=== PATIENT | female | born 1990 | race Caucasian/White ===

== ENCOUNTER → 2016-10-30 | Outpatient (REF) | payer OTHER ==
[~2016-10-30] MED LIST: /AUGM875TA OR; No Historical Meds; PERC5TAB8 OR
== END ==
LOC: M SFHCLERA 14:16
PROVIDERS: ATTEND Nurse Practitioner Family
DX: R30.0 Dysuria (principal); N89.8 Other specified noninflammatory disorders of vagina

== ENCOUNTER 2017-02-17 14:07 | Inpatient (IN) | payer OTHER ==
[~2017-02-17] VITALS: Ht 160 cm; Wt 94.0 kg
[2017-02-17] MEDS ORDERED: LAMO10TA PO (14:40)
[2017-02-17] MEDS ORDERED: LEVO25TA5 PO (14:40)
[2017-02-17] MEDS ORDERED: ZALE10CA PO (14:40)
[2017-02-17 15:33] LABS: METHADONE URINE NEGATIVE (NEGATIVE)
[2017-02-17 15:53] LABS: MEAN CORPUSCULAR HEMOGLOBIN 26.9 pg (27.0-33.0); MEAN CORPUSCULAR HGB CONC 33.2 g/dl (32.0-36.5); MEAN CORPUSCULAR VOLUME 81.2 fl (80.0-96.0); RED CELL DISTRIBUTION WIDTH 12.9 % (11.5-14.5); WHITE BLOOD COUNT 9.8 10^3/uL (4.0-10.0)
[2017-02-17 16:00] LABS: CONTROL LINE HCG INT CTR LINE PRESENT
[2017-02-17 16:16] LABS: ALBUMIN 3.8 GM/DL (3.2-5.2); ALBUMIN/GLOBULIN RATIO 1.06 (1.00-1.93); ALKALINE PHOSPHATASE 66 U/L (45-117); ALT/SGPT 98 U/L (12-78); ANION GAP 6 MEQ/L (8-16); AST/SGOT 74 U/L (15-37); BILIRUBIN,DIRECT < 0.1 MG/DL (0.0-0.2); BILIRUBIN,TOTAL 0.3 MG/DL (0.2-1.0); BLOOD UREA NITROGEN 14 MG/DL (7-18); CALCIUM LEVEL 8.9 MG/DL (8.5-10.1); CARBON DIOXIDE LEVEL 27 MEQ/L (21-32); CHLORIDE LEVEL 107 MEQ/L (98-107); GLOMERULAR FILTRATION RATE > 60.0 (>60); GLUCOSE, FASTING 88 MG/DL (70-105); SODIUM LEVEL 140 MEQ/L (136-145); TOTAL PROTEIN 7.4 GM/DL (6.4-8.2)
[2017-02-17] MEDS ORDERED: HYDR-3363 PO (17:56)
[2017-02-17] MEDS ORDERED: LEVO-86 PO (17:56)
[2017-02-17] MEDS ORDERED: MAALOX 30 ML SUSP *UDC PO PRN (19:30)
[2017-02-17] MEDS ORDERED: MOM 30ML SUSPENSION UDC PO PRN (19:30)
[2017-02-17] MEDS ORDERED: ACETAMINOPHEN TAB 650MG DOSE (2X325MG) PO PRN (19:30)
[2017-02-17 22:30] VITALS: BP 135/76
[2017-02-18 06:22] VITALS: BP 118/57
[2017-02-18] MEDS: LEVOTHYROXINE 75MCG TABLET (0.075MG) PO SCH (06:51)
--- NOTE | 2017-02-18 08:24 | ECGEPIP ---
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
[2017-02-18] MEDS: hydrOXYzine 25 MG TAB PO SCH (09:34)
[2017-02-18] MEDS: lamoTRIgine 100MG TAB PO SCH (09:34)
--- NOTE | 2017-02-18 09:42 | HPEPDOC ---
[facility] Medical History & Physical Date of Admission Feb 17, 2017 History and Physical PCP: Maria Isabel ATTENDING: Dr. Nadeem Jaime HPI: 26yoF admitted to [facility] for unspecified depressive disorder, being medically examined today. No acute medical complaints today. Patient states she takes Lamictal for her mood. She does use Tums intermittently for heartburn symptoms. She states this is effective for her. She states when she gets nervous she notices reflux symptoms. Denies any fevers, chills, weakness, fatigue, [place], CP, SOB, cough, palpitations, abdominal pain, N/V/D or changes in bowel or bladder habits. PMHx: Anxiety Depression Bipolar disorder Obesity. 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 ROS: As noted in HPI, otherwise 11pt ROS of systems reviewed and remarkable only for LMP 01/16/17. Mirena. PE: GEN: 26 yo F, appears stated age. Well-nourished, well developed. No acute distress. Alert and oriented x 3. Pleasant, interactive. HEENT: Normocephalic, atraumatic. Pupils are equal, round, and reactive to light. Extraocular movements are intact. No nystagmus appreciated. Sclera are nonicteric. Conjunctiva without injection. Nose midline. Nasal turbinates without bogginess. EACs both patent BL. TMs both visualized and baker with good cone of light, no bulging or erythema. No facial asymmetry. Moist mucous membranes. Dentition fair. Pharynx pink and moist, no cobblestoning. Neck supple , trachea midline. No lymphadenopathy or thyromegaly appreciated. CHEST: Regular rate and rhythm, +S1, +S2 LUNGS: Clear to auscultation bilaterally. No wheezes, rales, or rhonchi. Breathing appears symmetric and easy. Patient is speaking in full sentences. No accessory muscle use. ABD: Round, soft, non-tender, non-distended. +Bowel sounds throughout. No rebound or guarding. No costovertebral angle tenderness. EXT: Pulses 2+ bilaterally dorsalis pedis and radial. No lower extremity edema appreciated. SKIN: [place], dry, warm. Capillary refill <2sec. No rashes. NEURO: Alert and oriented x 3. Cranial nerves III-XII are intact. No focal deficits appreciated. EK02/17/17 SINUS RHYTHM NO PRIOR FOR COMPARISON. A&P: 26yoF admitted to [facility] for unspecified depressive disorder 1. Psych. Plan per Psychiatry. EKG on file. 2. GERD. Prilosec 20 mg by mouth daily. 3. Hypothyroid. Continue supplement. TSH is noted within normal limits. 4. Follow up with PCP on discharge. 5. Elevated LFTs. Recheck CMP in a.m. Add hepatitis profile. 6. Staff member Di present throughout exam. Vital Signs Vital Signs Date Time Temp Pulse Resp B/P (MAP) Pulse Ox O2 Delivery O2 Flow Rate FiO2 02/18/17 06:22 99.4 71 16 118/57 (77) Room Air 02/17/17 22:30 98 Laboratory Data Labs 24H Laboratory Tests 2 02/17/17 14:57: Urine Amphetamines Screen NEGATIVE, Urine Benzodiazepines Screen NEGATIVE, Urine Opiates Screen NEGATIVE, Urine Methadone Screen NEGATIVE, Urine Barbiturates Screen NEGATIVE, Urine Phencyclidine Screen NEGATIVE, Urine Cocaine Metabolite Screen NEGATIVE, Urine Cannabinoids Screen NEGATIVE 02/17/17 15:36: Anion Gap 6L, Glomerular Filtration Rate > 60.0, Calcium Level 8.9, Aspartate Amino Transf (AST/SGOT) 74H, Alanine Aminotransferase (ALT/SGPT) 98H, Alkaline Phosphatase 66, Total Bilirubin 0.3, Direct Bilirubin < 0.1, Total Protein 7.4, Albumin 3.8, Albumin/Globulin Ratio 1.06, Thyroid Stimulating Hormone (TSH) 2.310, Human Chorionic Gonadotropin, Qual NEGATIVE, Salicylates Level < 1.7L, Acetaminophen Level < 2.0L, Ethyl Alcohol Level 0.005 CBC/BMP Laboratory Tests 02/17/17 15:36 Red Blood Count 5.05, Mean Corpuscular Volume 81.2, Mean Corpuscular Hemoglobin 26.9 L, Mean Corpuscular Hemoglobin Concent 33.2, Red Cell Distribution Width 12.9 Home Medications Scheduled Lamotrigine (LaMICtal) 100 Mg Tab, 100 MG PO DAILY Levothyroxine Sodium (Levo-T) 75 Mcg Tab, 75 MCG PO DAILY Scheduled PRN Hydroxyzine HCl (Hydroxyzine HCl) 25 Mg Tab, 25 MG PO QID PRN for ANXIETY Allergies Coded Allergies: No Known Allergies (Verified , 02/17/17) Brii Coker Feb 18, 2017 09:42
[2017-02-18] MEDS: OMEPRAZOLE 20 MG CAP PO SCH (11:40)
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
[2017-02-18 18:00] VITALS: BP 120/60
[2017-02-18] MEDS: lamoTRIgine 25 MG TAB PO SCH (21:25)
[2017-02-18] MEDS: traZODone 50 MG TAB PO PRN (21:25)
[2017-02-18] MEDS: PRAZOSIN 1 MG CAP PO SCH (21:26)
[2017-02-19] MEDS: LEVOTHYROXINE 75MCG TABLET (0.075MG) PO SCH (06:13)
[2017-02-19 06:57] VITALS: BP 120/67
[2017-02-19 07:15] LABS: ALBUMIN 3.5 GM/DL (3.2-5.2); ALBUMIN/GLOBULIN RATIO 1.13 (1.00-1.93); ALKALINE PHOSPHATASE 58 U/L (45-117); ALT/SGPT 87 U/L (12-78); ANION GAP 8 MEQ/L (8-16); AST/SGOT 55 U/L (15-37); BILIRUBIN,TOTAL 0.2 MG/DL (0.2-1.0); BLOOD UREA NITROGEN 14 MG/DL (7-18); CALCIUM LEVEL 8.4 MG/DL (8.5-10.1); CARBON DIOXIDE LEVEL 27 MEQ/L (21-32); CHLORIDE LEVEL 105 MEQ/L (98-107); CREATININE FOR GFR 0.84 MG/DL (0.55-1.02); GLOMERULAR FILTRATION RATE > 60.0 (>60); GLUCOSE, FASTING 117 MG/DL (70-105); POTASSIUM SERUM 4.1 MEQ/L (3.5-5.1); SODIUM LEVEL 140 MEQ/L (136-145); TOTAL PROTEIN 6.6 GM/DL (6.4-8.2)
[2017-02-19] MEDS: hydrOXYzine 25 MG TAB PO SCH (08:12)
[2017-02-19] MEDS: OMEPRAZOLE 20 MG CAP PO SCH (08:12)
[2017-02-19] MEDS: lamoTRIgine 100MG TAB PO SCH (08:12)
--- NOTE | 2017-02-19 15:24 | MHIPNPDOC ---
[facility] Progress Note Progress Note DATE OF SERVICE: 02/19/17 HISTORY: . Patient is a 26 years old female that was admitted after having an overdose on sleeping pills. Patient reported feeling better. No ideas of self-harm. No side effects of medication. Very pleasant, cooperative with full range affect VITAL SIGNS: See below. NEW TEST RESULTS: . CURRENT MEDICATIONS: See below. MENTAL STATUS EXAMINATION: General appearance: Patient is a 26-year old female, who has long brown hair, pleasant smile, laughs easily, shares openly, dressed in hospital attire with good eye contact. Speech: spontaneous, coherent Thought processes: goal directed, no delusions, MUSA or IOR Thought content: appropriate Abstract reasoning and computation:good. Description of associations: good Description of abnormal or psychotic thoughts: no hallucinations, not presently planning to harm herself. Judgment: limited Insight: limited Orientation: oriented in all realms Recent and remote memory: intact Attention span and concentration: fair. Fund of knowledge: full Mood: "ok" Affect: full range DIAGNOSES: 1. . Bipolar disorder 2. . 3. . ASSESSMENT: 26 years old female that was admitted after having an overdose of sleeping pills and worsening symptoms of depression, currently feeling better, no longer endorsing any depressive symptoms. No suicidal ideas. No side effects of medications MANAGEMENT PLAN: . Continue current medications. Discharge planning as per primary team TIME SPENT: 25 minutes. Vital Signs Vital Signs Date Time Temp Pulse Resp B/P (MAP) Pulse Ox O2 Delivery O2 Flow Rate FiO2 02/19/17 06:57 97.4 81 18 120/67 (84) 02/18/17 06:22 Room Air 02/17/17 22:30 98 Laboratory Data 24H Labs Laboratory Tests 2 02/19/17 06:08: Anion Gap 8, Glomerular Filtration Rate > 60.0, Blood Urea Nitrogen 14, Creatinine 0.84, Sodium Level 140, Potassium Level 4.1, Chloride Level 105, Carbon Dioxide Level 27, Calcium Level 8.4L, Aspartate Amino Transf (AST/SGOT) 55H, Alanine Aminotransferase (ALT/SGPT) 87H, Alkaline Phosphatase 58, Total Bilirubin 0.2, Total Protein 6.6, Albumin 3.5, Albumin/Globulin Ratio 1.13 CBC/BMP Laboratory Tests 02/19/17 06:08 Calcium Level 8.4 L, Aspartate Amino Transf (AST/SGOT) 55 H, Alanine Aminotransferase (ALT/SGPT) 87 H, Alkaline Phosphatase 58, Total Bilirubin 0.2, Total Protein 6.6, Albumin 3.5 Current Medications Current Medications Acetaminophen (Tylenol Tab) 650 mg Q6HP PRN PO HEADACHE or DISCOMFORT; Start 02/17/17 at 19:30; Stop 03/19/17 at 19:29 Al Hydrox/Mg Hydrox/Simethicone (Mylanta) 30 ml Q4HP PRN PO HEARTBURN/ INDIGESTION; Start 02/17/17 at 19:30; Stop 03/19/17 at 19:29 Home Med (Med Rec Complete!) ASDIRECTED XX ; Start 02/17/17 at 18:00; Stop 02/17/17 at 18:01; Status DC Hydroxyzine HCl (Atarax) 25 mg DAILY PO Last administered on 02/19/17 08:12; Start 02/18/17 at 09:00; Stop 03/20/17 at 08:59 Hydroxyzine HCl (Atarax) 25 mg Q6HP PRN PO ANXIETY; Start 02/18/17 at 15:15; Stop 03/20/17 at 15:14 Lamotrigine (LaMICtal) 25 mg QHS PO Last administered on 02/18/17 21:25; Start 02/18/17 at 21:00; Stop 03/20/17 at 20:59 Lamotrigine (LaMICtal) 100 mg DAILY PO Last administered on 02/19/17 08:12; Start 02/18/17 at 09:00; Stop 03/20/17 at 08:59 Levothyroxine Sodium (Synthroid) 75 mcg DAILY@06 PO Last administered on 06:13; Start 02/18/17 at 06:00; Stop 03/20/17 at 05:59 Magnesium Hydroxide (Milk Of Magnesia) 30 ml DAILYPRN PRN PO CONSTIPATION; Start 02/17/17 at 19:30; Stop 03/19/17 at 19:29 Omeprazole (PriLOSEC) 20 mg DAILY PO Last administered on 02/19/17 08:12; Start 02/18/17 at 09:00; Stop 03/20/17 at 08:59 Prazosin HCl (Minipress) 1 mg QHS PO Last administered on 02/18/17 21:26; Start 02/18/17 at 21:00; Stop 03/20/17 at 20:59 Trazodone HCl (Desyrel) 50 mg QHSP PRN PO INSOMNIA Last administered on 21:25; Start 02/17/17 at 19:30; Stop 03/19/17 at 19:29 Allergies Coded Allergies: No Known Allergies (Verified , 02/17/17) BHARGAVI MONET MD Feb 19, 2017 15:24
[2017-02-19] MEDS: hydrOXYzine 25 MG TAB PO PRN (16:09)
[2017-02-19] MEDS: PRAZOSIN 1 MG CAP PO SCH (21:24)
[2017-02-19] MEDS: lamoTRIgine 25 MG TAB PO SCH (21:24)
[2017-02-20] MEDS: traZODone 50 MG TAB PO PRN ×2 (00:11→22:53)
[2017-02-20] MEDS: LEVOTHYROXINE 75MCG TABLET (0.075MG) PO SCH (05:36)
[2017-02-20 06:36] VITALS: BP 133/60
[2017-02-20] MEDS: lamoTRIgine 100MG TAB PO SCH (08:34)
[2017-02-20] MEDS: OMEPRAZOLE 20 MG CAP PO SCH (08:34)
[2017-02-20] MEDS: hydrOXYzine 25 MG TAB PO SCH (08:34)
--- NOTE | 2017-02-20 15:57 | MHIPNPDOC ---
[facility] Progress Note Progress Note DATE OF SERVICE: 02/20/17 HISTORY: . Patient is a 26 years old female that was admitted after having an overdose on sleeping pills. Patient reported feeling better. No ideas of self-harm. No side effects of medication. Very pleasant, cooperative. VITAL SIGNS: See below. NEW TEST RESULTS: . CURRENT MEDICATIONS: See below. MENTAL STATUS EXAMINATION: General appearance: Patient is a 26-year old female, who has long brown hair, pleasant smile, laughs easily, shares openly, dressed in hospital attire with good eye contact. Speech: spontaneous, coherent Thought processes: goal directed, no delusions, MUSA or IOR Thought content: appropriate Abstract reasoning and computation:good. Description of associations: good Description of abnormal or psychotic thoughts: no hallucinations, not presently planning to harm herself. Judgment: limited Insight: limited Orientation: oriented in all realms Recent and remote memory: intact Attention span and concentration: fair. Fund of knowledge: full Mood: "ok" Affect: full range DIAGNOSES: 1. . Bipolar disorder 2. . 3. . ASSESSMENT: 26 years old female that was admitted after having an overdose of sleeping pills and worsening symptoms of depression, currently feeling better, no longer endorsing any depressive symptoms. No suicidal ideas. No side effects of medications MANAGEMENT PLAN: . Continue current medications. Discharge planning as per primary team TIME SPENT: 25 minutes. Vital Signs Vital Signs Date Time Temp Pulse Resp B/P (MAP) Pulse Ox O2 Delivery O2 Flow Rate FiO2 02/20/17 06:36 98.4 74 18 133/60 (84) 02/18/17 06:22 Room Air 02/17/17 22:30 98 Current Medications Current Medications Acetaminophen (Tylenol Tab) 650 mg Q6HP PRN PO HEADACHE or DISCOMFORT; Start 02/17/17 at 19:30; Stop 03/19/17 at 19:29 Al Hydrox/Mg Hydrox/Simethicone (Mylanta) 30 ml Q4HP PRN PO HEARTBURN/ INDIGESTION; Start 02/17/17 at 19:30; Stop 03/19/17 at 19:29 Home Med (Med Rec Complete!) ASDIRECTED XX ; Start 02/17/17 at 18:00; Stop 02/17/17 at 18:01; Status DC Hydroxyzine HCl (Atarax) 25 mg DAILY PO Last administered on 02/20/17 08:34; Start 02/18/17 at 09:00; Stop 03/20/17 at 08:59 Hydroxyzine HCl (Atarax) 25 mg Q6HP PRN PO ANXIETY Last administered on 16:09; Start 02/18/17 at 15:15; Stop 03/20/17 at 15:14 Lamotrigine (LaMICtal) 25 mg QHS PO Last administered on 02/19/17 21:24; Start 02/18/17 at 21:00; Stop 03/20/17 at 20:59 Lamotrigine (LaMICtal) 100 mg DAILY PO Last administered on 02/20/17 08:34; Start 02/18/17 at 09:00; Stop 03/20/17 at 08:59 Levothyroxine Sodium (Synthroid) 75 mcg DAILY@06 PO Last administered on 05:36; Start 02/18/17 at 06:00; Stop 03/20/17 at 05:59 Magnesium Hydroxide (Milk Of Magnesia) 30 ml DAILYPRN PRN PO CONSTIPATION; Start 02/17/17 at 19:30; Stop 03/19/17 at 19:29 Omeprazole (PriLOSEC) 20 mg DAILY PO Last administered on 02/20/17 08:34; Start 02/18/17 at 09:00; Stop 03/20/17 at 08:59 Prazosin HCl (Minipress) 1 mg QHS PO Last administered on 02/19/17 21:24; Start 02/18/17 at 21:00; Stop 03/20/17 at 20:59 Trazodone HCl (Desyrel) 50 mg QHSP PRN PO INSOMNIA Last administered on 00:11; Start 02/17/17 at 19:30; Stop 03/19/17 at 19:29 Allergies Coded Allergies: No Known Allergies (Verified , 02/17/17) BHARGAVI MONET MD Feb 20, 2017 15:56
[2017-02-20] MEDS: hydrOXYzine 25 MG TAB PO PRN (16:52)
[2017-02-20 18:00] VITALS: BP 110/51
[2017-02-20] MEDS: lamoTRIgine 25 MG TAB PO SCH (22:54)
[2017-02-20] MEDS: PRAZOSIN 1 MG CAP PO SCH (22:55)
[2017-02-21] MEDS: LEVOTHYROXINE 75MCG TABLET (0.075MG) PO SCH (06:04)
[2017-02-21 07:04] VITALS: BP 121/62
[2017-02-21] MEDS: lamoTRIgine 100MG TAB PO SCH (08:59)
[2017-02-21] MEDS: hydrOXYzine 25 MG TAB PO SCH ×2 (08:59→23:02)
[2017-02-21] MEDS: OMEPRAZOLE 20 MG CAP PO SCH (08:59)
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
[2017-02-21 18:00] VITALS: BP 109/55
[2017-02-21] MEDS ORDERED: lamoTRIgine 25 MG TAB PO SCH (21:00)
[2017-02-21] MEDS: traZODone 50 MG TAB PO PRN (23:01)
[2017-02-21 23:04] VITALS: BP 138/68
[2017-02-21] MEDS: PRAZOSIN 1 MG CAP PO SCH (23:04)
[2017-02-22] MEDS: LEVOTHYROXINE 75MCG TABLET (0.075MG) PO SCH (06:05)
[2017-02-22 06:45] VITALS: BP 111/54
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
[2017-02-22] MEDS: OMEPRAZOLE 20 MG CAP PO SCH (08:48)
[2017-02-22] MEDS: lamoTRIgine 100MG TAB PO SCH (08:48)
[2017-02-22 09:44] LABS: ALBUMIN 3.6 GM/DL (3.2-5.2); ALBUMIN/GLOBULIN RATIO 1.09 (1.00-1.93); ALKALINE PHOSPHATASE 60 U/L (45-117); ALT/SGPT 81 U/L (12-78); ANION GAP 8 MEQ/L (8-16); AST/SGOT 53 U/L (15-37); BILIRUBIN,TOTAL 0.3 MG/DL (0.2-1.0); BLOOD UREA NITROGEN 14 MG/DL (7-18); CALCIUM LEVEL 9.3 MG/DL (8.5-10.1); CARBON DIOXIDE LEVEL 26 MEQ/L (21-32); CHLORIDE LEVEL 103 MEQ/L (98-107); CREATININE FOR GFR 0.94 MG/DL (0.55-1.02); GLOMERULAR FILTRATION RATE > 60.0 (>60); GLUCOSE, FASTING 210 MG/DL (70-105); POTASSIUM SERUM 4.1 MEQ/L (3.5-5.1); SODIUM LEVEL 137 MEQ/L (136-145); TOTAL PROTEIN 6.9 GM/DL (6.4-8.2)
[2017-02-22] MEDS ORDERED: TRAZO50TA PO (11:09)
[2017-02-22] MEDS ORDERED: MINI1CAP PO (11:09)
[2017-02-22] MEDS ORDERED: LAMI25TA PO (11:09)
[2017-02-22] MEDS: hydrOXYzine 25 MG TAB PO PRN (11:59)
== END 2017-02-22 12:30 | disposition home or self-care (01) | DRG 885 ==
LOC: M ED 14:07 → M ED INP 19:30 → M PSY 22:27
PROVIDERS: ADMIT Psychiatry & Neurology Psychiatry; ATTEND Psychiatry & Neurology Psychiatry
DX: F31.4 Bipolar disorder, current episode depressed, severe, without psychotic features (principal); F60.3 Borderline personality disorder; Z79.899 Other long term (current) drug therapy; E66.9 Obesity, unspecified; E03.9 Hypothyroidism, unspecified; Z68.36 Body mass index [BMI] 36.0-36.9, adult; K21.9 Gastro-esophageal reflux disease without esophagitis

== ENCOUNTER → 2018-01-02 | Outpatient (CLI) | payer OTHER ==
[2018-01-02 11:28] LABS: TOTAL 25(OH) VITAMIN D 48.3 NG/ML (30.0-100.0)
[2018-01-02 11:29] LABS: ALBUMIN 4.1 GM/DL (3.2-5.2); ALBUMIN/GLOBULIN RATIO 1.24 (1.00-1.93); ALKALINE PHOSPHATASE 77 U/L (45-117); ALT/SGPT 31 U/L (12-78); ANION GAP 8 MEQ/L (8-16); AST/SGOT 19 U/L (7-37); BILIRUBIN,TOTAL 0.5 MG/DL (0.2-1.0); BLOOD UREA NITROGEN 15 MG/DL (7-18); CALCIUM LEVEL 9.3 MG/DL (8.5-10.1); CARBON DIOXIDE LEVEL 29 MEQ/L (21-32); CHLORIDE LEVEL 106 MEQ/L (98-107); CHOLESTEROL LEVEL 172 MG/DL (<200); CHOLESTEROL RISK RATIO 3.909 (<5); FERRITIN 61 NG/ML (8-252); FREE T4 0.89 NG/DL (0.76-1.46); GLOMERULAR FILTRATION RATE > 60.0 (>60); GLUCOSE, FASTING 83 MG/DL (70-100); HDL CHOLESTEROL 44 MG/DL (>40); IRON (FE) 82 UG/DL (50-170); LDL CHOLESTEROL 107.8 MG/DL (<100); NON-HDL-C 128 MG/DL; PERCENT SATURATION 29.8 % (13.2-45.0); POTASSIUM SERUM 4.2 MEQ/L (3.5-5.1); SODIUM LEVEL 143 MEQ/L (136-145); TOTAL IRON BINDING CAPACITY 275 UG/DL (250-450); TOTAL PROTEIN 7.4 GM/DL (6.4-8.2); TRIGLYCERIDES LEVEL 101 MG/DL (<150); VITAMIN B12 LEVEL 328 PG/ML
[2018-01-02 11:31] LABS: FOLATE > 24.0 NG/ML
[2018-01-02 11:56] LABS: ESTIMATED AVERAGE GLUCOSE 108 MG/DL (60-110); HEMOGLOBIN A1c 5.4 %
[2018-01-02 13:02] LABS: BASO % 0.4 % (0.0-1.0); EOS # 0.2 10^3/uL (0.0-0.50); EOS % 2.7 % (0.0-3.0); HEMATOCRIT 40.7 % (36.0-47.0); HEMOGLOBIN 13.6 g/dl (12.0-15.5); IMMATURE GRANULOCYTE % 0.2 % (0-3.0); LYMPH # 2.2 10^3/uL (1.5-6.5); LYMPH % 38.8 % (24.0-44.0); MEAN CORPUSCULAR HEMOGLOBIN 27.6 pg (27.0-33.0); MEAN CORPUSCULAR HGB CONC 33.4 g/dl (32.0-36.5); MEAN CORPUSCULAR VOLUME 82.6 fl (80.0-96.0); MONO # 0.3 10^3/uL (0.0-0.8); MONO % 5.7 % (0.0-5.0); NEUTROPHILS # 2.9 10^3/uL (1.8-7.7); NEUTROPHILS % 52.2 % (36.0-66.0); PLATELET COUNT, AUTOMATED 280 10^3/uL (150-450); RED BLOOD COUNT 4.93 10^6/uL (4.00-5.40); WHITE BLOOD COUNT 5.6 10^3/uL (4.0-10.0)
== END ==
LOC: M LAB 10:32
DX: Z98.84 Bariatric surgery status (principal)
CPT/HCPCS: 82746

== ENCOUNTER → 2018-01-24 | Outpatient (REF) | payer BC, OTHER ==
[2018-01-24 19:08] LABS: MAU/CREAT RATIO 4.7 MCG/MG (0.0-30.0)
== END ==
LOC: M SFHCCAPE 10:37
DX: E11.8 Type 2 diabetes mellitus with unspecified complications (principal)
CPT/HCPCS: 82043

== ENCOUNTER 2018-04-04 10:37 | Emergency (ER) | payer MEDICAID, SELFPAY, OTHER | END 2018-04-04 11:34 | disposition home or self-care (01) | LOC: M ED 10:37 | DX: S70.02XA Contusion of left hip, initial encounter (principal); W00.0XXA Fall on same level due to ice and snow, initial encounter; Y92.410 Unspecified street and highway as the place of occurrence of the external cause; E06.3 Autoimmune thyroiditis; Z98.84 Bariatric surgery status | CPT/HCPCS: 73502 ==

== ENCOUNTER 2019-03-04 23:18 | Emergency (ER) | payer MEDICAID, OTHER, SELFPAY ==
[~2019-03-04] VITALS: Ht 160 cm; Wt 115.0 kg
[~2019-03-04 23:18] MED LIST changes: +HYDR-3363 PO; +HYDR-3715 PO; +IBUP-1022 PO; +LAMI25TA PO; +LAMO100T80 PO; +LEVO-86 PO; +LEVO25TA5 PO; +MINI1CAP PO; +TRAZ1TAB10 PO; +ZALE10CA PO
[2019-03-05] MEDS ORDERED: TETRACAINE 0.5% OPHTH SOLN 4ML OS ONE (00:30)
[2019-03-05] MEDS ORDERED: FLUORESCEIN OPHTH 1 MG STRIP OS ONE (00:30)
[2019-03-05] MEDS ORDERED: NORCO, ANEXSIA 5/325MG TABLET (HYDROcodone/ACETAMINOPHEN) PO ONE (00:45)
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
[2019-03-05 01:37] VITALS: BP 139/70
== END 2019-03-05 01:48 | disposition home or self-care (01) ==
LOC: M ED 23:18
DX: S05.11XA Contusion of eyeball and orbital tissues, right eye, initial encounter (principal); S00.81XA Abrasion of other part of head, initial encounter; K08.89 Other specified disorders of teeth and supporting structures; Y04.8XXA Assault by other bodily force, initial encounter; Y92.9 Unspecified place or not applicable; Y93.9 Activity, unspecified; Y99.9 Unspecified external cause status; E03.9 Hypothyroidism, unspecified

== ENCOUNTER → 2019-11-22 | Outpatient (REF) | payer OTHER ==
[2019-11-22 14:33] LABS: BASO % 0.6 % (0.0-1.0); EOS # 0.1 10^3/uL (0.0-0.5); EOS % 2.1 % (0.0-3.0); HEMATOCRIT 31.8 % (36.0-47.0); HEMOGLOBIN 9.7 g/dl (12.0-15.5); LYMPH # 1.7 10^3/uL (1.5-5.0); LYMPH % 35.7 % (24.0-44.0); MEAN CORPUSCULAR HEMOGLOBIN 24.1 pg (27.0-33.0); MEAN CORPUSCULAR HGB CONC 30.5 g/dl (32.0-36.5); MEAN CORPUSCULAR VOLUME 79.1 fl (80.0-96.0); MONO # 0.6 10^3/uL (0.0-0.8); MONO % 12.4 % (0.0-5.0); NEUTROPHILS # 2.4 10^3/uL (1.5-8.5); NEUTROPHILS % 48.8 % (36.0-66.0); PLATELET COUNT, AUTOMATED 333 10^3/uL (150-450); RED BLOOD COUNT 4.02 10^6/uL (4.00-5.40); WHITE BLOOD COUNT 4.8 10^3/uL (4.0-10.0)
[2019-11-22 15:43] LABS: ALBUMIN 3.5 GM/DL (3.2-5.2); ALT/SGPT 198 U/L (12-78); BILIRUBIN,TOTAL 0.2 MG/DL (0.2-1.0); BLOOD UREA NITROGEN 12 MG/DL (7-18); CALCIUM LEVEL 9.4 MG/DL (8.5-10.1); CARBON DIOXIDE LEVEL 30 MEQ/L (21-32); CHLORIDE LEVEL 107 MEQ/L (98-107); CREATININE FOR GFR 0.74 MG/DL (0.55-1.30); GLOMERULAR FILTRATION RATE > 60.0 (>60); GLUCOSE, FASTING 63 MG/DL (70-100); SODIUM LEVEL 142 MEQ/L (136-145)
[2019-11-23 09:43] LABS: HEPATITIS B SURFACE ANTIGEN NEGATIVE (NEGATIVE)
[2019-11-23 09:46] LABS: HEPATITIS B SURFACE ANTIBODY NEGATIVE (POSITIVE)
[2019-11-23 09:47] LABS: HIV 1&2 SCREEN CENTAUR NEGATIVE (NEGATIVE)
[2019-11-29 00:08] LABS: HEPATITIS A IgG TOTAL Negative (Negative); HEPATITIS B CORE ANTIBODY IGG Negative (Negative); HEPATITIS C QUANTITATION 156280 IU/mL (.); HEPATITIS C VIRUS GENOTYPE 1b (.)
== END ==
LOC: M SFHCPLAZ 12:31
PROVIDERS: ATTEND Internal Medicine Infectious Disease
DX: B19.20 Unspecified viral hepatitis C without hepatic coma (principal); L02.93 Carbuncle, unspecified

== ENCOUNTER → 2019-11-23 | Outpatient (CLI) | payer OTHER ==
--- NOTE | 2019-11-23 11:16 | ECGEPIP ---
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
[2019-11-23 11:19] LABS: HEMATOCRIT 31.5 % (36.0-47.0); HEMOGLOBIN 9.5 g/dl (12.0-15.5); MEAN CORPUSCULAR HEMOGLOBIN 23.9 pg (27.0-33.0); MEAN CORPUSCULAR HGB CONC 30.2 g/dl (32.0-36.5); MEAN CORPUSCULAR VOLUME 79.3 fl (80.0-96.0); PLATELET COUNT, AUTOMATED 297 10^3/uL (150-450); RED BLOOD COUNT 3.97 10^6/uL (4.00-5.40); WHITE BLOOD COUNT 4.2 10^3/uL (4.0-10.0)
[2019-11-23 11:45] LABS: HCG, SERUM QUALITATIVE NEGATIVE (NEGATIVE)
[2019-11-23 11:59] LABS: ALBUMIN 3.4 GM/DL (3.2-5.2); ALT/SGPT 177 U/L (12-78); BILIRUBIN,TOTAL 0.5 MG/DL (0.2-1.0); BLOOD UREA NITROGEN 10 MG/DL (7-18); CALCIUM LEVEL 8.9 MG/DL (8.5-10.1); CARBON DIOXIDE LEVEL 29 MEQ/L (21-32); CHLORIDE LEVEL 107 MEQ/L (98-107); CREATININE FOR GFR 0.74 MG/DL (0.55-1.30); GLOMERULAR FILTRATION RATE > 60.0 (>60); GLUCOSE, FASTING 71 MG/DL (70-100); POTASSIUM SERUM 4.1 MEQ/L (3.5-5.1); SODIUM LEVEL 141 MEQ/L (136-145); TOTAL PROTEIN 6.8 GM/DL (6.4-8.2)
[2019-11-23 12:05] LABS: HEPATITIS B SURFACE ANTIGEN NEGATIVE (NEGATIVE)
[2019-11-23 12:33] LABS: HIV 1&2 SCREEN CENTAUR NEGATIVE (NEGATIVE)
[2019-11-23 13:02] LABS: CHLAMYDIA DNA AMPLIFICATION NEGATIVE (NEGATIVE); GC DNA AMPLIFICATION NEGATIVE (NEGATIVE)
[2019-11-23 15:23] LABS: HEPATITIS C VIRUS ABY INDEX > 11.0 INDEX (<0.8)
== END ==
LOC: EEVIPCON 10:32 → M LAB 10:32
PROVIDERS: ATTEND Family Medicine
DX: F11.20 Opioid dependence, uncomplicated (principal)

== ENCOUNTER 2020-07-07 12:18 | Emergency (ER) | payer OTHER ==
[~2020-07-07] VITALS: Ht 160 cm; Wt 54.5 kg
[2020-07-07] MEDS ORDERED: ACETAMINOPHEN 325 MG TAB PO ONE (12:45)
[2020-07-07] MEDS ORDERED: NALOXONE 2MG/2ML SYRINGE (J2310 PER 1MG) IV ONE (12:45)
--- OUTSIDE RECORDS SUMMARY | 2020-07-07 13:03 | CCD ---
Author Author [facility] Organization [facility] Address Unknown Phone Unavailable Support Name Relationship Address Phone DENA JACOBS Next Of Kin [address] [place] [address] Unavailable UE Next Of Kin Unknown Unavailable DENA MALHOTRA Next Of Kin [address] [place] [address] DPAO Next Of Kin [address] [place] [address] CONVERGY'S Next Of Kin [address] [place] [address] CONVERGYS Next Of Kin [address] [place] [address] RODERICK ZAPATA Next Of Kin [address] [facility] [address], [place] [address] GLO ZAPATA Next Of Kin [address] [place] [address] SETH ELLIOTT Next Of Kin [address] [facility] [address] JRC Next Of Kin [address] [place] [address] JRC* [place] [address] ARABELLA LAWRENCE Next Of Kin [address] [address] [place] [address] SMC* Next Of Kin [address] [place] [address] ARABELLA SOSA Next Of Kin [address] [facility] [address] DENA PAVON Next Of Kin [address] [place] [address] NONE HIEU MCGARRY Next Of Kin Unknown KEN PAVON Next Of Kin [address] [place] [address] JOSEPH ALLAN Next Of [place] [address] [place] [address] NONE GIO ALLAN Next Of Kin [address] [place] [address] Dena malhotra ECON [address] [place] [address] [phone] RODERICK ZAPATA ECON [address] [place] [address] Unavailable Care Team Providers Care Care Program Resident Name Role Phone NUZHAT GRAHAM MD Unavailable Unavailable ASARNUZHAT MD Unavailable Unavailable ASARNUZHAT MD Unavailable Unavailable ASARNUZHAT MD Unavailable Unavailable ASARNUZHAT MD Unavailable Unavailable ASARNUZHAT MD Unavailable Unavailable ASARNUZHAT MD Unavailable Unavailable Cougler, S Tavon OPTOMETRIC ASSISTANT Unavailable Unavailable Cougler, S Tavon OPTOMETRIC ASSISTANT Unavailable Unavailable Cougler, S Tavon OPTOMETRIC ASSISTANT Unavailable Unavailable Cougler, S Tavon OPTOMETRIC ASSISTANT Unavailable Unavailable Cougler, S Tavon OPTOMETRIC ASSISTANT Unavailable Unavailable Cougler, S Tavon OPTOMETRIC ASSISTANT Unavailable Unavailable Cougler, S Tavon OPTOMETRIC ASSISTANT Unavailable Unavailable Cougler, S Tavon OPTOMETRIC ASSISTANT Unavailable Unavailable Cougler, S Tavon OPTOMETRIC ASSISTANT Unavailable Unavailable Cougler, S Tavon OPTOMETRIC ASSISTANT Unavailable Unavailable Cougler, S Tavon OPTOMETRIC ASSISTANT Unavailable Unavailable Cougler, S Tavon OPTOMETRIC ASSISTANT Unavailable Unavailable Cougler, S Tavon OPTOMETRIC ASSISTANT Unavailable Unavailable Cougler, S Tavon OPTOMETRIC ASSISTANT Unavailable Unavailable Cougler, S Tavon OPTOMETRIC ASSISTANT Unavailable Unavailable Cougler, S Tavon OPTOMETRIC ASSISTANT Unavailable Unavailable Cougler, S Tavon OPTOMETRIC ASSISTANT Unavailable Unavailable Cougler, S Tavon OPTOMETRIC ASSISTANT Unavailable Unavailable Cougler, S Tavon OPTOMETRIC ASSISTANT Unavailable Unavailable Cougler, S Tavon OPTOMETRIC ASSISTANT Unavailable Unavailable Cougler, S Tavon OPTOMETRIC ASSISTANT Unavailable Unavailable Cougler, S Tavon OPTOMETRIC ASSISTANT Unavailable Unavailable Cougler, S Tavon OPTOMETRIC ASSISTANT Unavailable Unavailable Cougler, S Tavon OPTOMETRIC ASSISTANT Unavailable Unavailable Cougler, S Tavon OPTOMETRIC ASSISTANT Unavailable Unavailable Cougler, S Tavon OPTOMETRIC ASSISTANT Unavailable Unavailable Cougler, S Tavon OPTOMETRIC ASSISTANT Unavailable Unavailable Cougler, S Tavon OPTOMETRIC ASSISTANT Unavailable Unavailable Cougler, S Tavon OPTOMETRIC ASSISTANT Unavailable Unavailable Cougler, S Tavon OPTOMETRIC ASSISTANT Unavailable Unavailable Cougler, S Tavon OPTOMETRIC ASSISTANT Unavailable Unavailable Cougler, S Tavon OPTOMETRIC ASSISTANT Unavailable Unavailable Cougler, S Tavon OPTOMETRIC ASSISTANT Unavailable Unavailable Cougler, S Tavon OPTOMETRIC ASSISTANT Unavailable Unavailable Cougler, S Tavon OPTOMETRIC ASSISTANT Unavailable Unavailable Cougler, S Tavon OPTOMETRIC ASSISTANT Unavailable Unavailable Cougler, S Tavon OPTOMETRIC ASSISTANT Unavailable Unavailable Cougler, S Tavon OPTOMETRIC ASSISTANT Unavailable Unavailable Cougler, S Tavon OPTOMETRIC ASSISTANT Unavailable Unavailable Cougler, S Tavon OPTOMETRIC ASSISTANT Unavailable Unavailable MARAVEGIAS, N ISMENE MD Unavailable Unavailable MARAVEGIAS, N ISMENE MD Unavailable Unavailable MARAVEGIAS, N ISMENE MD Unavailable Unavailable MARAVEGIAS, N ISMENE MD Unavailable Unavailable MARAVEGIAS, N ISMENE MD Unavailable Unavailable MARAVEGIAS, N ISMENE MD Unavailable Unavailable MARAVEGIAS, N ISMENE MD Unavailable Unavailable MARAVEGIAS, N ISMENE MD Unavailable Unavailable MARAVEGIAS, N ISMENE MD Unavailable Unavailable MARAVEGIAS, N ISMENE MD Unavailable Unavailable MARAVEGIAS, N ISMENE MD Unavailable Unavailable MARAVEGIAS, N ISMENE MD Unavailable Unavailable MARAVEGIAS, N ISMENE MD Unavailable Unavailable MARAVEGIAS, N ISMENE MD Unavailable Unavailable AsarVenessa MD Unavailable Unavailable JANE, A JOSEPH PA Unavailable Unavailable JANE, A JOSEPH PA Unavailable Unavailable JANE, A JOSEPH PA Unavailable Unavailable JANE, A JOSEPH PA Unavailable Unavailable JANE, A JOSEPH PA Unavailable Unavailable JANE, A JOSEPH PA Unavailable Unavailable JANE, A JOSEPH PA Unavailable Unavailable JANE, A JOSEPH PA Unavailable Unavailable JANE, A JOSEPH PA Unavailable Unavailable JANE, A JOSEPH PA Unavailable Unavailable JANE, A JSOEPH PA Unavailable Unavailable JANE, A JOSEPH PA Unavailable Unavailable JANE, A JOSEPH PA Unavailable Unavailable Vitaliy, Rosa Unavailable Re-disclosure Warning The records that you are about to access may contain information from federally-assisted alcohol or drug abuse programs. If such information is present, then the following federally mandated warning applies: This information has been disclosed to you from records protected by federal confidentiality rules (42 CFR part 2). The federal rules prohibit you from making any further disclosure of this information unless further disclosure is expressly permitted by the written consent of the person to whom it pertains or as otherwise permitted by 42 CFR part 2. A general authorization for the release of medical or other information is NOT sufficient for this purpose. The Federal rules restrict any use of the information to criminally investigate or prosecute any alcohol or drug abuse patient.The records that you are about to access may contain highly sensitive health information, the redisclosure of which is protected by Article 27-F of the [facility] Public Health law. If you continue you may have access to information: Regarding HIV / AIDS; Provided by facilities licensed or operated by the [facility] Office of Mental Health; or Provided by the [facility] Office for People With Developmental Disabilities. If such information is present, then the following [facility] mandated warning applies: This information has been disclosed to you from confidential records which are protected by state law. State law prohibits you from making any further disclosure of this information without the specific written consent of the person to whom it pertains, or as otherwise permitted by law. Any unauthorized further disclosure in violation of state law may result in a fine or prison sentence or both. A general authorization for the release of medical or other information is NOT sufficient authorization for further disc losure. Allergies and Adverse Reactions Type Description Substance Reaction Status Data Source(s ) Drug allergy Drug allergy No Known Allergies [facility] Drug allergy Drug allergy No Known Allergies [facility] Family History Family Member Name Family Member Gender Family Member Status Date o f Status Description Data Source(s) Unknown Unknown Problem [facility] ([facility]) Encounters Encounter Providers Location Date Indications Data Source(s ) Inpatient Attender: Nuzhat Valencia nder: NUZHAT GRAHAM MDAdmitter: NUZHAT GRAHAM MD [facility] 02/05/2020 05:01:00 PM EDT - 02/08/2020 03:05:00 PM EDT PSYCHOACTIVE SUBSTANCE DEPENDENCE [facility] PSYCHOACTIVE SUBSTANCE DEPENDENCE Patient discharged. Unknown [address] [facility] [address] 11/30/2019 12:00:00 AM EDT eCW1 ([facility]) Emergency Attender: CITLALLI BHAGAT MDAttender: JOSEPH CAREY ED-ED 11/28/2019 07:49:00 AM EDT - 11/28/2019 10:00:00 AM EDT ARM PAIN [facility] ARM PAIN Patient discharged. Unknown [address] [facility] [address] 11/27/2019 12:00:00 AM EDT eCW1 ([facility]) Outpatient [address] [facility] [address] 11/22/2019 12:00:00 AM EDT eCW1 ([facility]) Emergency Attender: Tavon Marroquin NP ED-ED 11/05 01:20:00 PM EDT - 11/06/2019 01:48:00 PM EDT LT EYE SWELLING [facility] LT EYE SWELLING Patient discharged. Psychiatric Diagnostic Evaluation (Non-Medical) [facility]25[facility] 12:30:00 PM EDT - 07/25/2019 12:30:00 PM EDT [facility] ([facility]) Attender: Rosa Burks 07/25/2019 12:00:00 AM E DT [facility] ([facility]) Extended Individual Psychotherapy - 45 min Attender: Wolfgang Burks [facility] 07/19/2019 01:45:00 AM EST - 07/19/2019 01:45:00 AM EST [facility] ([facility]) Attender: Rosa Burks 07/19/2019 12:00:[address] [facility] ([facility]) Medications Medication Brand Name Start Date Product Form Dose Route Admi nistrative Instructions Pharmacy Instructions Status Indications Reaction Description Data Source(s) Mupirocin 0.02 MG/MG Topical Ointment Mupirocin 2 % Mupiroci n 2 % 11/30/2019 12:00:00 AM EDT 1.0 {application} active Mupirocin 2 % eCW1 ([facility]) Mupirocin 0.02 MG/MG Topical Ointment Mupirocin 2 % Mupiroci n 2 % 11/30/2019 12:00:00 AM EDT 1.0 {application} active Mupirocin 2 % eCW1 ([facility]) Mupirocin 0.02 MG/MG Topical Ointment Mupirocin 2 % Mupiroci n 2 % 11/30/2019 12:00:00 AM EDT 1.0 {application} active Mupirocin 2 % eCW1 ([facility]) Sulfamethoxazole 800 MG / Trimethoprim 1 60 MG Oral Tablet [Bactrim] Bactrim DS 800-160 MG Bactrim DS 800-160 MG 11/22/2019 12:00:00 AM EDT 1.0 {table t} active Bactrim DS 800-160 MG eCW1 ( [facility]) chlorhexidine gluconate 40 MG/ML Medicat ed Liquid Soap [Hibiclens] Hibiclens 4 % Hibiclens 4 % 11/22/2019 12:00:00 AM EDT act paul Hibiclens 4 % eCW1 ([facility]) chlorhexidine gluconate 40 MG/ML Medicat ed Liquid Soap [Hibiclens] Hibiclens 4 % Hibiclens 4 % 11/22/2019 12:00:00 AM EDT act paul Hibiclens 4 % eCW1 ([facility]) Sulfamethoxazole 800 MG / Trimethoprim 1 60 MG Oral Tablet [Bactrim] Bactrim DS 800-160 MG Bactrim DS 800-160 MG 11/22/2019 12:00:00 AM EDT 1.0 {table t} active Bactrim DS 800-160 MG eCW1 ( [facility]) Sulfamethoxazole 800 MG / Trimethoprim 1 60 MG Oral Tablet [Bactrim] Bactrim DS 800-160 MG Bactrim DS 800-160 MG 11/22/2019 12:00:00 AM EDT 1.0 {table t} active Bactrim DS 800-160 MG eCW1 ( [facility]) chlorhexidine gluconate 40 MG/ML Medicat ed Liquid Soap [Hibiclens] Hibiclens 4 % Hibiclens 4 % 11/22/2019 12:00:00 AM EDT act paul Hibiclens 4 % eCW1 ([facility]) 5 mg 10/17/2019 12:00:00 AM EDT tablet 14 TAKE ONE TABLET BY MOUTH AT BEDTIME TAKE ONE TABLET BY MOUTH AT BEDTIME SOLD: 10/17/2019 [facility] 10 mg 10/17/2019 12:00:00 AM EDT tablet 14 TAKE ONE TABLET BY MOUTH EVERY DAY TAKE ONE TABLET BY MOUTH EVERY DAY SOLD: 10/17/2019 [facility] Insurance Providers Payer name Policy type / Coverage type Policy ID Covered green party ID Covered green party's relationship to cordova Policy [place] Plan Information R[place] [id number] SP [id number] [facility] [place] [id number] Unemployed [id number] [place] [place] [id number] Unemployed [id number] [place] [id number] S [id number] [place] [id number] SP [id number] SELF PAY ONLY - SP1 SP [id number] SPOUSE [id number] SELF PAY ONLY [id number] SP [id number] [facility] [id number] SP [id number] MEDICAID [id number] SP [id number] [facility] [id number] SP [id number] ANSI-Medicaid [id number] ANSI-Medicaid [id number] BCBS FEDERAL EMPLOYEE PROGRAM [id number] [facility] Health Maintenance Organization (HMO) [id number] Self [id number] ANSI-Medicaid [id number] ANSI-Medicaid [id number] SELF PAY UNAVAILABLE SP UNAVAILA BLE ANSI-Medicaid [id number] ANSI-Medicaid [id number] ANSI-Medicaid [id number] ANSI-Medicaid [id number] [facility] [id number] SP [id number] ANSI-Medicaid [id number] ANSI-Medicaid [id number] ANSI-Medicaid [id number] ANSI-Medicaid [id number] ANSI-Medicaid [id number] ANSI-Medicaid [id number] [place]BS [place] PPO 302/307 [id number] SP [id number] ANSI-Medicaid [id number] ANSI-Medicaid [id number] ANSI-Medicaid [id number] ANSI-Medicaid [id number] MEDICAID M [id number] ANSI-Medicaid [id number] ANSI-Not a Secondary Insurance [id number] ANSI-Medicaid [id number] ANSI-Medicaid [id number] ANSI-Not a Secondary Insurance [id number] BCBS FEDERAL EMPLOYEE PROGRAM [id number] SP [id number] [facility] [id number] SP [id number] BCBS [place] 306/806 [id number] [id number] ANSI-Medicaid [id number] ANSI-Not a Secondary Insurance [id number] [facility] I [id number] Self [id number] MEDICAID M [id number] Self [id number] UNHC COMMUNITY PLAN XIX [id number] 18 [id number] [facility] I [id number] Self [id number] U [id number] Self [id number] U [id number] Self [id number] [facility] [place] [facility] [id number] [facility] [id number] [place] CARE MEDICAID [facility] HMO [id number] S [id number] [place] [id number] CHILD [id number] MEDICAID [facility] [id number] S [id number] [place] [id number] S [id number] [place] Medicaid/CHP/FHP Commercial Self MEDICAID -CLINIC [id number] UNHC AMERICHOICE XIX -HMO [id number] 18 [id number] [facility]ID [facility] [id number] S [id number] SELF PAY SP UNAVAILABLE S UNAVAILA BLE [facility] COMM PLAN ANABELLE W [id number] S [id number] AMERICHOICE UNHC XIX HMO-I/P [id number] 18 [id number] UNHC XIX HMO-O/P [id number] 18 [id number] UNHC XIX HMO-CLINIC [id number] 18 [id number] BCBS OF [place] [id number] YOU [id number] UNHC XIX HMO-CLINIC [id number] 18 [id number] UNHC AMERICHOICE XIX HMO [id number] 18 [id number] MEDICAID - CLINIC PENDING 18 PE NDING [id number] Problems, Conditions, and Diagnoses Code Display Name Description Problem Type Effective Dates Data Source(s) B19.20 07394208 Hepatitis C virus in fection without hepatic coma, unspecified chronicity Problem 11/22/2019 12:00:00 AM EDT eCW1 ([facility]) F31.9 [id number] Bipolar disorder with depression Problem 11/22/2019 12:00:00 AM EDT eCW1 ([facility]) L02.93 [id number] Recurrent boils Problem 11/22/2019 12:00:00 AM EDT eCW1 ([facility]) F11.10 [id number] Heroin abuse Problem 11/22/2019 12:00:00 AM EDT eCW1 ([facility]) F15.20 Other stimulant dependence, uncomplicate d Stimulant Use Disorder, Severe: Other or unspecified stimulant Condition 07/25/2019 12:00:00 AM EDT [facility] ([facility]) F31.9 Bipolar disorder, unspecified Bipolar I Disorder, Current or most recent episode manic, Unspecified Condition 07/25/2019 12:00:00 AM EDT [facility] ([facility]) Z59.0 Homelessness HOMELESSNESS Diagnosis 02/05/2020 05:01:[address] [facility] Z91.5 Personal history of self-harm PERSONAL HISTORY OF SELF -HARM Diagnosis 02/05/2020 05:01:[address] [facility] F43.10 Post-traumatic stress disorder, unspecif ied POST-TRAUMATIC STRESS DISORDER, UNSPECIFIED Diagnosis 02/05/2020 05:01:00 PM [facility] F90.9 Attention-deficit hyperactivity disorder , unspecified type ATTENTION- DEFICIT HYPERACTIVITY DISORDER, UNSPECIFIED TYPE Diagnosis 02/04 05:01:[address] [facility] F41.9 Anxiety disorder, unspecified ANXIETY DISORDER, UNSPEC IFIED Diagnosis 02/05/2020 05:01:[address] [facility] F31.9 Bipolar disorder, unspecified BIPOLAR DISORDER, UNSPEC IFIED Diagnosis 02/05/2020 05:01:[address] [facility] K21.9 Gastro-esophageal reflux disease without esophagitis GASTRO-ESOPHAGEAL REFLUX DISEASE WITHOUT ESOPHAGITIS Diagnosis 02/05/2020 05:01:00 PM ED [facility] E06.3 Autoimmune thyroiditis AUTOIMMUNE THYROIDITIS Diagnosi s 02/05/2020 05:01:[address] [facility] Z98.84 Bariatric surgery status BARIATRIC SURGERY STATUS Diag nosis 02/05/2020 05:01:[address] [facility] E55.9 Vitamin D deficiency, unspecified VITAMIN D DEFI CIENCY, UNSPECIFIED Diagnosis 02/05/2020 05:01:[address] [facility] B18.2 Chronic viral hepatitis C CHRONIC VIRAL HEPATITIS C Di agnosis 02/05/2020 05:01:[address] [facility] Z53.29 Procedure and treatment not carried out because of patient's decision for other reasons PROC/TRTMT NOT CRD OUT BEC PT DECISION FOR OTH REASONS Diagn osis 02/05/2020 05:01:[address] [facility] F17.210 Nicotine dependence, cigarettes, uncompl icated NICOTINE DEPENDENCE, CIGARETTES, UNCOMPLICATED Diagnosis 02/05/2020 05:01:[address] [facility] F14.10 Cocaine abuse, uncomplicated COCAINE ABUSE, UNCOMPLICA STEPHANE Diagnosis 02/05/2020 05:01:[address] 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 Surgeries/Procedures Procedure Description Date Indications Data Source(s) Individual Counseling for Substance Abuse Treatment, C ognitive-Behavioral INDIV CONSTRUCTION TRADES TEACHER FOR SUBSTANCE ABUSE, COGNITIVE BEHAVIORAL 02/07/2020 12:00:[address] [facility] Group Counseling for Substance Abuse Treatment, Motiva tional Enhancement GROUP CONSTRUCTION TRADES TEACHER FOR SUBSTANCE ABUSE, MOTIVATIONAL ENHANCE 02/07/2020 12:00:[address] [facility] Group Counseling for Substance Abuse Treatment, Spirit ual GROUP COUNSELING FOR SUBSTANCE ABUSE TREATMENT, SPIRITUAL 02/07/2020 12:00:[address] [facility] Group Counseling for Substance Abuse Treatment, Cognit paul-Behavioral GROUP CONSTRUCTION TRADES TEACHER FOR SUBSTANCE ABUSE, COGNITIVE BEHAVIORAL 02/07/2020 12:00:[address] [facility] Psychiatric Diagnostic Evaluation (Non-Medical) 07/25/2019 12:00:00 AM EDT - 07/25/2019 12:00:00 AM EDT [facility] ([facility]) Psychiatric Diagnostic Evaluation (Non-Medical) 2019 12:00:00 [facility] Extended Individual Psychotherapy - 45 min 07/19/2019 12:00:00 AM EST - 07/19/2019 12:00:00 AM EST [facility] ([facility]) Extended Individual Psychotherapy - 45 min 0 12:00:00 AM EST [facility] ([facility]) Results ID Date Data Source [id number] 02/06/2020 09:28:00 AM EDT [facility] Name Value Range Interpretation Code Description Data Gabby rce(s) Supporting Document(s) White Blood Count 4.8-10.8 Below low normal [facility] Red Blood Count 3.68-5.22 Normal (applies to non-numeric results) [facility] Hemoglobin 11.2-15.7 Below low normal [facility] Hematocrit 34.1-44.9 Below low normal [facility] Mean Corpuscular Volume 81-99 Below low normal [facility] Mean Corpuscular Hemoglobin 27.0-33.0 Below low normal [facility] Mean Corpuscular HGB Conc 32.0-36.0 Normal (applies to no n-numeric results) [facility] Red Cell Distribution Width 11.5-14.5 Above high normal [facility] Platelet Count 319 X10 3/uL 130-450 Normal (applies to non-numeric results) [facility] Mean Platelet Volume 9.5-12.7 Below low normal [facility] Imm Grans% (AUTO) 0 % 0-2 Normal (applies to non-numeri c results) [facility] Neutrophils % (AUTO) 64 % 40-75 Normal (applies to non-num gomez results) [facility] Lymphocytes % (AUTO) 27 % 21-46 Normal (applies to non-num gomez results) [facility] Monocytes % (AUTO) 6 % 5-12 Normal (applies to non-numer ic results) [facility] Eosinophils % (AUTO) 2 % 1-5 Normal (applies to non-num gomez results) [facility] Basophils % (AUTO) 0 % 0-1 Normal (applies to non-numer ic results) [facility] Imm Grans# (AUTO) 0.0-0.5 Normal (applies to non-numeri c results) [facility] Neutrophils # (AUTO) 1.5-8.1 Normal (applies to non-num gomez results) [facility] Lymphocytes # (AUTO) 1.0-3.1 Normal (applies to non-num gomez results) [facility] Monocytes # (AUTO) 0.2-1.3 Normal (applies to non-numer ic results) [facility] Eosinophils# (AUTO) 0.0-0.5 Normal (applies to non-nume marcell results) [facility] Basophils # (AUTO) 0.0-0.1 Normal (applies to non-numer ic results) [facility] ID Date Data Source [id number] 02/06/2020 09:52:00 AM EDT [facility] Name Value Range Interpretation Code Description Data Gabby rce(s) Supporting Document(s) Sodium 141 mmol/L 137-145 Normal (applies to non-numeric resul ts) [facility] Potassium 3.5-5.1 Normal (applies to non-numeric resul ts) [facility] Chloride 110 mmol/L 98-112 Normal (applies to non-numeric resul ts) [facility] Carbon Dioxide CO2 22.0-33.0 Normal (applies to non-numer ic results) [facility] Anion Gap 4.0-11.0 Below low normal [facility] BUN 10 mg/dL 7-17 Normal (applies to non-numeric resul ts) [facility] Creatinine 0.70-1.20 Normal (applies to non-numeric resul ts) [facility] GFR 80 mL/min >60 Normal (applies to non-numeric resul ts) [facility] Result based on MDRD formula. Glucose Level 139 mg/dL 74-99 Above high normal [facility] The reference range is only applicable w hen fasting. Calcium-Uncorrected 8.4-10.2 Normal (applies to non-nume marcell results) [facility] Corrected Calcium 8.4-10.2 Normal (applies to non-numeri c results) [facility] [facility] Bilirubin,Total 0.2-1.3 Normal (applies to non-numeric results) [facility] Bilirubin,Direct 0.0-0.3 Normal (applies to non-numeric results) [facility] SGOT(AST) 49 U/L 14-36 Above high normal [facility] SGPT(ALT) 57 U/L 9-52 Above high normal [facility] Alkaline Phosphatase 73 U/L 38-126 Normal (applies to non-num gomez results) [facility] can increase Alkaline Phosp le vels up to 2 times the normal adult value. Normal values for children and adolescents are 2 to 3 times the normal adult value. CPK 111 U/L 26-192 Normal (applies to non-numeric resul ts) [facility] Total Protein 6.3-8.2 Normal (applies to non-numeric re sults) [facility] Albumin 3.5-5.0 Normal (applies to non-numeric resul ts) [facility] Thyroid Stimulate Hormone TSH 0.358-3.740 No rmal (applies to non-numeric results) [facility] ID Date Data Source [id number] 02/06/2020 09:52:00 AM EDT [facility] Name Value Range Interpretation Code Description Data Gabby rce(s) Supporting Document(s) Magnesium 1.80-2.40 Normal (applies to non-numeric resul ts) [facility] ID Date Data Source [id number] 02/06/2020 09:52:00 AM EDT [facility] Name Value Range Interpretation Code Description Data Gabby rce(s) Supporting Document(s) C-Reactive Protein,Wide Range <3.00 Above high normal [facility] ID Date Data Source [id number] 02/06/2020 10:37:00 AM EDT [facility] Name Value Range Interpretation Code Description Data Gabby rce(s) Supporting Document(s) Hep Bs Ag Result T-Test Nonreactive Normal (applies to non -numeric results) [facility] ID Date Data Source [id number] 02/06/2020 10:37:00 AM EDT [facility] Name Value Range Interpretation Code Description Data Gabby rce(s) Supporting Document(s) Vitamin D,Total (25OH) 30.0-100.0 Below low normal [facility] Reference Range: <10 ng/mL: Deficien t 10-30 ng/mL: Insufficient 30-100 ng/mL: Sufficient >100 ng/mL: Toxicity possible ID Date Data Source [id number] 02/06/2020 10:37:00 AM EDT [facility] Name Value Range Interpretation Code Description Data Gabby rce(s) Supporting Document(s) HAVM Nonreactive Normal (applies to non-numeric resu lts) [facility] ID Date Data Source [id number] 02/06/2020 10:37:00 AM EDT [facility] Name Value Range Interpretation Code Description Data Gabby rce(s) Supporting Document(s) Syphilis Serology Nonreactive Normal (applies to non-numer ic results) [facility] ID Date Data Source [id number] 02/08/2020 05:56:00 PM EDT [facility] Name Value Range Interpretation Code Description Data Gabby rce(s) Supporting Document(s) Chlamydia,Urine Negative Normal (applies to non-numeric results) [facility] GC Urine Negative Normal (applies to non-numeric resul ts) [facility] Methodology: Second generation nucleic a jerel amplification. ID Date Data Source [id number] 02/08/2020 07:51:00 AM EDT [facility] Name Value Range Interpretation Code Description Data Gabby rce(s) Supporting Document(s) Urine Culture [facility] ID Date Data Source [id number] 02/08/2020 07:51:00 AM EDT [facility] Name Value Range Interpretation Code Description Data Gabby rce(s) Supporting Document(s) Vancomycin 1 Susceptible. Indicates for m icrobiology susceptibilities only. [facility] Doxycycline Susceptible. Indicates for m icrobiology susceptibilities only. [facility] Daptomycin 1 Susceptible. Indicates for m icrobiology susceptibilities only. [facility] Gentamicin Susceptible. Indicates for microbiol ogy susceptibilities only. [facility] Linezolid 2 Susceptible. Indicates for microbiol ogy susceptibilities only. [facility] Moxifloxacin Susceptible. Indicates for m icrobiology susceptibilities only. [facility] Nitrofurantoin 32 Susceptible. Ind icates for microbiology susceptibilities only. [facility] Oxacillin BONY Susceptible. Ind icates for microbiology susceptibilities only. [facility] Rifampin Susceptible. Indicates for microbiol ogy susceptibilities only. [facility] Tetracycline Susceptible. Indicates for m icrobiology susceptibilities only. [facility] Trimeth/Sulfamethoxazole Suscept ible. Indicates for microbiology susceptibilities only. [facility] ID Date Data Source [id number] 02/05/2020 05:54:00 PM EDT [facility] Name Value Range Interpretation Code Description Data Gabby rce(s) Supporting Document(s) SARS-CoV-2 RNA Negative Normal (applies to non-numeric r esults) [facility] Negative results should be treated as pr esumptive and, if inconsistent with clinical signs and symptoms or necessary for patient management, should be tested with different authorized or cleared molecular tests. Negative results do not preclude SARS-CoV-2 infection and should not be used as the sole basis for patient management decisions. Negative results should be considered in the context of a patients recent exposures, history and the presence of clinical signs and symptoms consistent with COVID-19. This test has not been FDA cleared or approved; this test has been authorized by FDA under an Emergency Use Authorization for use by laboratories certified under the Clinical Laboratory Improvement Amendments of 1988 (CLIA), 42 U.S.C. 263a, to perform moderate complexity/high complexity tests and at the Point of Care (POC), i.e., in patient care settings operating under a CLIA Certificate of Waiver, Certificate of Compliance, or Certificate of Accreditation. Factsheets for healthcare providers: https://www.fda.gov/media/281466/download Factsheets for patients: https://www.fda.gov/media/191897/download THIS IS A STATE REPORTABLE COMMUNICABLE DISEASE. Manual entry verified by Blessing Alberts 02/05/201753 ID Date Data Source [id number] 02/05/2020 09:23:00 PM EDT [facility] Name Value Range Interpretation Code Description Data Gabby rce(s) Supporting Document(s) Color,Urine Yellow Normal (applies to non-numeric resu lts) [facility] Clarity,Urine Clear Normal (applies to non-numeric re sults) [facility] Specific Dunbar,Urine 1.001-1.030 Normal (applies to non- numeric results) [facility] PH,Urine 4.6-8.0 Normal (applies to non-numeric resul ts) [facility] Protein,Urine Negative Normal (applies to non-numeric re sults) [facility] Glucose,Urine (UA) Negative Normal (applies to non-numer ic results) [facility] Ketones,Urine Negative Normal (applies to non-numeric re sults) [facility] Blood,Urine Negative Normal (applies to non-numeric resu lts) [facility] Bilirubin,Urine Negative Normal (applies to non-numeric results) [facility] Urobilinogen,Urine Norm 0.2-1 Normal (applies to non-numer ic results) [facility] Leukocyte Esterase,Urine Negative Normal (applies to non -numeric results) [facility] Nitrite,Urine Negative [facility] ID Date Data Source [id number] 02/05/2020 09:23:00 PM EDT [facility] Name Value Range Interpretation Code Description Data Gabby rce(s) Supporting Document(s) Urine HCG Negative Normal (applies to non-numeric resul ts) [facility] ID Date Data Source [id number] 02/05/2020 09:23:00 PM EDT [facility] Name Value Range Interpretation Code Description Data Gabby rce(s) Supporting Document(s) WBC,URINE 0-10 [facility] RBC,Urine 0-2 [facility] arline Hyaline Casts,Ur None Seen [facility] Bacteria,Urine None Seen [facility] Epithelial Cell,Ur None-Few [facility] ID Date Data Source [id number] 02/05/2020 08:04:00 PM EDT [facility] Name Value Range Interpretation Code Description Data Gabby rce(s) Supporting Document(s) Opiate Screen,Urine Negative Normal (applies to non-nume marcell results) [facility] Amphetamine Screen,Urine Negative [facility] Benzodiazepines Scrn,Ur result Negative N ormal (applies to non-numeric results) [facility] Cocaine Screen,Urine Negative Normal (applies to non-num gomez results) [facility] Methadone Screen,Urine Negative Normal (applies to non-n umeric results) [facility] Cannabinoid Screen, Ur Negative Normal (applies to non-n umeric results) [facility] Therapeutic Drug Ranges for Emergency an d Rehabilitation Threshold Levels (ng/mL) Cocaine 300 Opiates 300 Cannabinoids 50 Barbiturates 200 Benzodiazepine 200 Methadone 300 Amphetamines 1000 All positive findings are presumptive and unconfirmed. Confirmation of positive results are performed only at request of provider. Unconfirmed results must not be used for non-medical purposes (i.e. pre-employment and legal purposes) ID Date Data Source HEPATITIS C FIBROSURE [id number] 11/29/2019 04:27:24 AM EDT eC W1 ([facility]) Name Value Range Interpretation Code Description Data Gabby rce(s) Supporting Document(s) 0.13 eCW1 ([facility]) eCW1 ([facility]) 0.75 eCW1 ([facility]) A3-Severe activity eCW1 ([facility]) 240 eCW1 ([facility]) 136 eCW1 ([facility]) 0.2 eCW1 ([facility]) 136 eCW1 ([facility]) 96 eCW1 ([facility]) eCW1 ([facility]) eCW1 ([facility]) 189 eCW1 ([facility]) eCW1 ([facility]) eCW1 ([facility]) eCW1 ([facility]) ID Date Data Source HEPATITIS C GENOTYPE 11/29/2019 04:27:24 AM EDT eCW1 ([facility]) Name Value Range Interpretation Code Description Data Gabby rce(s) Supporting Document(s) eCW1 ([facility]) 1b eCW1 ([facility]) ID Date Data Source HEPATITIS C QUANT BY PCR 11/29/2019 04:27:24 AM EDT eCW1 ([facility]) Name Value Range Interpretation Code Description Data Gabby rce(s) Supporting Document(s) 5.194 eCW1 ([facility]) [id number] eCW1 ([facility]) ID Date Data Source HEPATITIS B CORE ANTIBODY IGG 11/29/2019 04:27:23 AM EDT eCW 1 ([facility]) Name Value Range Interpretation Code Description Data Gabby rce(s) Supporting Document(s) Negative eCW1 ([facility]) ID Date Data Source HEPATITIS A IgG 11/29/2019 04:27:23 AM EDT eCW1 ([facility]) Name Value Range Interpretation Code Description Data Gabby rce(s) Supporting Document(s) Negative eCW1 ([facility]) ID Date Data Source [id number] 11/28/2019 02:29:00 PM EDT [facility] Imaging Services Department Imaging Report [address] [place] [address] %(RAD)RES..mtdd.print.filter("line") Name: GIO ZAPATA : 1990 Age/Sex: 29F Ordering Provider: Citlalli Bhagat MD Med Rec #: [id number] Reg Status: DEP ER Room #: Date of Service: 11/28/19 Report Number: [id number] cc:Citlalli Bhagat MD; PCP None Send Report To: [id number] US/US Dup Upper Ext Vein Bilat Reason for exam: both arms hurt Technique: Ultrasound imaging performed using color flow and spectral Doppler interrogation. FINDINGS: Normal compressibility and augmentation and flow identified from the subclavian vein through the cephalic and basilic veins with no DVT seen. IMPRESSION: NO DVT in either arm. REPORT SIGNATURE ON FILE Reported By: Joseph Miller MD <Electronically signed by Prashanth Miller MD> 11/29/19 0956 Dictation Date/Time: 11/28/19 1026 Transcribed Date/Time: 11/28/19 1429 Telegraph Office Manager: ELAINE Name Value Range Interpretation Code Description Data Gabby rce(s) Supporting Document(s) ID Date Data Source WOUND CULTURE AND GRAM ST 11/27/2019 02:28:29 AM EDT eCW1 (formerly [facility]) Name Value Range Interpretation Code Description Data Gabby rce(s) Supporting Document(s) eCW1 ([facility]) ID Date Data Source [id number] 11/23/2019 11:22:09 AM EDT eCW1 ([facility]) Name Value Range Interpretation Code Description Data Gabby rce(s) Supporting Document(s) eCW1 ([facility]) ID Date Data Source HEPATITIS B SURFACE ANTIGEN 11/23/2019 11:22:09 AM EDT eCW1 ([facility]) Name Value Range Interpretation Code Description Data Gbaby rce(s) Supporting Document(s) NEGATIVE eCW1 ([facility]) ID Date Data Source HEPATITIS B SURFACE ANTIBODY 11/23/2019 11:22:09 AM EDT eCW1 ([facility]) Name Value Range Interpretation Code Description Data Gabby rce(s) Supporting Document(s) NEGATIVE eCW1 ([facility]) ID Date Data Source Comprehensive Metabolic Profile (CMP) 11/23/2019 11:22:09 AM EDT eCW1 ([facility]) Name Value Range Interpretation Code Description Data Gabby rce(s) Supporting Document(s) 12 eCW1 ([facility]) 63 eCW1 ([facility]) > 60.0 eCW1 ([facility]) 0.74 [facility] 142 [facility]CW1 [facility] 30 eCW1 [facility] 5.0 eCW1 [facility] 107 eCW1 [facility] 198 [facility]CW1 [facility] 128 eCW1 [facility] 114 eCW1 ([facility]) 9[facility]4 eCW1 [facility] 3.5 eCW1 [facility] 7.0 eCW1 ([facility]) 1.0 eCW1 ([facility]) 0.2 eCW1 ([facility]) ID Date Data Source CBC with Differential 11/23/2019 11:22:09 AM EDT eCW1 ([facility]) Name Value Range Interpretation Code Description Data Gabby rce(s) Supporting Document(s) 4.8 eCW1 ([facility]) 4.02 eCW1 ([facility]) 9.7 eCW1 ([facility]) 24.1 eCW1 ([facility]) 31.8 eCW1 ([facility]) 79.1 eCW1 ([facility]) 333 eCW1 ([facility]) 30.5 eCW1 ([facility]) 13.2 eCW1 ([facility]) 12.4 eCW1 ([facility]) 48.8 eCW1 ([facility]) 35.7 eCW1 ([facility]) 2.4 eCW1 ([facility]) 0.6 eCW1 ([facility]) 2.1 eCW1 ([facility]) 1.7 eCW1 ([facility]) 0.1 eCW1 ([facility]) 0.6 eCW1 ([facility]) 0.0 eCW1 ([facility]) Procedure Social History Code Duration Value Status Description Data Source(s ) Smoking 11/22/2019 12:00:00 AM EDT Never Smoker completed Never S moker eCW1 ([facility]) Smoking 11/22/2019 12:00:00 AM EDT Never Smoker completed Never S moker eCW1 ([facility]) Smoking 11/22/2019 12:00:00 AM EDT Never Smoker completed Never S moker eCW1 ([facility]) Smoking 07/25/2019 12:00:00 AM EDT Unknown if ever smoked comp leted Unknown if ever smoked [facility] ([facility]) Smoking 07/19/2019 12:00:00 AM EST Unknown if ever smoked comp leted Unknown if ever smoked [facility] ([facility]) Vital Signs ID Date Data Source UNK Name Value Range Interpretation Code Description Data Source(s) Diastolic blood pressure 52 mm[Hg] 52 mm[Hg] eCW1 ([facility]) Systolic blood pressure 124 mm[Hg] 124 mm[Hg] e CW1 ([facility]) Body temperature 97.6 [degF] 97.6 [degF] eCW1 ( [facility]) Respiratory rate 16 /min 16 /min eCW1 ([facility]) Heart rate 89 /min 89 /min eCW1 ([facility]) Body mass index (BMI) [Ratio] 22.96 kg/m2 22.96 kg/m2 eCW1 ([facility]) Body height 65 [in_i] 65 [in_i] eCW1 ([facility]) Body weight 138 [lb_av] 138 [lb_av] eCW1 ([facility]) Body weight 112.00 [lb_av] 112.00 [lb_av] MEDEN T ([facility]) Body temperature 97.3 [degF] 97.3 [degF] MEDENT ([facility]) Respiratory rate 18 /min 18 /min MEDENT ( [facility]) Heart rate 92 /min 92 /min MEDENT ([facility]) Diastolic blood pressure 67 mm[Hg] 67 mm[Hg] MEDENT ([facility]) Systolic blood pressure 115 mm[Hg] 115 mm[Hg] M EDENT ([facility]) ID Date Data Source [id number] 02/13/2020 04:19:00 AM EDT [facility] Name Value Range Interpretation Code Description Data Source(s) Weight Measurement Method 1 1 [facility] Weight (Calculated Kilograms) 49.90 49.90 [facility] Weight 1760 1760 [facility] Temperature Source 7 7 [facility] Temperature 97.5 97.5 [facility] Respiratory Effort 1 1 [facility] Respiratory Rate 16 16 [facility] Pulse Assessment Method 4 4 [facility] Pulse Rate 70 70 [facility] Height (Calculated Centimeters) 160.02 160. 02 [facility] Height 63 63 [facility] Blood Pressure 100/61 100/61 [facility] Body Mass Index (BMI) 19.5 19.5 [facility] Weight Measurement Method 1 1 [facility] Weight (Calculated Kilograms) 49.90 49.90 [facility] Weight 1760 1760 [facility] Temperature Source 7 7 [facility] Temperature 97.5 97.5 [facility] Respiratory Effort 1 1 [facility] Respiratory Rate 16 16 [facility] Pulse Assessment Method 4 4 [facility] Pulse Rate 70 70 [facility] Height (Calculated Centimeters) 160.02 160. 02 [facility] Height 63 63 [facility] Blood Pressure 100/61 100/61 [facility] Body Mass Index (BMI) 19.5 19.5 [facility] Weight Measurement Method 1 1 [facility] Weight (Calculated Kilograms) 49.90 49.90 [facility] Weight 1760 1760 [facility] Temperature Source 7 7 [facility] Temperature 97.5 97.5 [facility] Respiratory Effort 1 1 [facility] Respiratory Rate 16 16 [facility] Pulse Assessment Method 4 4 [facility] Pulse Rate 70 70 [facility] Height (Calculated Centimeters) 160.02 160. 02 [facility] Height 63 63 [facility] Blood Pressure 100/61 100/61 [facility] Body Mass Index (BMI) 19.5 19.5 [facility] Weight Measurement Method 1 1 [facility] Weight (Calculated Kilograms) 49.90 49.90 [facility] Weight 1760 1760 [facility] Temperature Source 7 7 [facility] Temperature 97.5 97.5 [facility] Respiratory Effort 1 1 [facility] Respiratory Rate 14 14 [facility] Pulse Assessment Method 4 4 [facility] Pulse Rate 70 70 [facility] Height (Calculated Centimeters) 160.02 160. 02 [facility] Height 63 63 [facility] Blood Pressure 100/61 100/61 [facility] Body Mass Index (BMI) 19.5 19.5 [facility] Weight Measurement Method 1 1 [facility] Weight (Calculated Kilograms) 49.90 49.90 [facility] Weight 1760 1760 [facility] Temperature Source 7 7 [facility] Temperature 97.4 97.4 [facility] Respiratory Effort 1 1 [facility] Respiratory Rate 16 16 [facility] Pulse Assessment Method 4 4 [facility] Pulse Rate 70 70 [facility] Height (Calculated Centimeters) 160.02 160. 02 [facility] Height 63 63 [facility] Blood Pressure 100/61 100/61 [facility] Body Mass Index (BMI) 19.5 19.5 [facility] Weight Measurement Method 1 1 [facility] Weight (Calculated Kilograms) 49.90 49.90 [facility] Weight 1760 1760 [facility] Temperature Source 7 7 [facility] Temperature 97.9 97.9 [facility] Respiratory Effort 1 1 [facility] Respiratory Rate 16 16 [facility] Pulse Assessment Method 4 4 [facility] Pulse Rate 86 86 [facility] Height (Calculated Centimeters) 160.02 160. 02 [facility] Height 63 63 [facility] Blood Pressure 127/74 127/74 [facility] Body Mass Index (BMI) 19.5 19.5 [facility] ID Date Data Source [id number] 11/29/2019 09:57:00 AM EDT [facility] Name Value Range Interpretation Code Description Data Source(s) Weight Measurement Method 8 8 [facility] Weight 2079 2079 [facility] pital Temperature Source 3 3 [facility] Temperature 97.0 97.[facility] Res[facility] Effort 1 1 [facility] Respiratory Rate 16 16 [facility] Pulse Assessment Method 4 4 [facility] Pulse Rate 69 69 [facility] pital Height 63 63 [facility] Pressure 103/65 103/65 [facility] Weight Measurement Method 8 8 [facility] Weight 2079 2079 [facility] pital Temperature Source 3 3 [facility] Temperature 96.8 96.8 [facility] spital Respiratory Effort 1 1 [facility] Respiratory Rate 18 18 [facility] Pulse Assessment Method 4 4 [facility] Pulse Rate 96 96 [facility] pital Height 63 63 [facility] Pressure 109/84 109/84 [facility] Weight Measurement Method 8 8 [facility] Weight 2079 2079 [facility] pital Temperature Source 3 3 [facility] Temperature 96.8 96.8 [facility] Respiratory Effort 1 1 [facility] Respiratory Rate 18 18 [facility] Pulse [facility] 96 96 [facility] pital Height 63 63 [facility] pital Blood Pressure 109/84 109/84 [facility] Weight Measurement Method 8 8 [facility] Weight 2079 2079 [facility] pital Temperature Source 3 3 [facility] 96.8 96.[facility] 1 1 [facility] Respiratory Rate 18 18 [facility] Pulse Assessment Method 4 [facility] P[facility] 96 96 [facility] pital Height 63 63 [facility] pital Blood Pressure 109/84 109/84 [facility] ID Date Data Source [id number] 11/06/2019 02:02:00 PM EDT [facility] spital Name Value Range Interpretation Code Description Data Source(s) Weight Measurement Method 8 8 [facility] Weight 2063 2063 [facility] pital Temperature Source 7 7 [facility] Temperature 97.5 97.5 [facility] spital Respiratory Effort 1 1 [facility] Respiratory Rate 16 16 [facility] Pulse Assessment Method 4 4 [facility] [facility] Pulse Rate 75 75 [facility] 63 63 [facility] 101/61 101/61 [facility] Weight Measurement Method 8 8 [facility] Weight 2063 2063 [facility] pital Temperature Source 7 7 [facility] Temperature 97.5 97.5 [facility] spital Respiratory Effort 1 1 [facility] Respiratory Rate 16 16 [facility] Pulse Assessment Method 4 4 G [facility] Pulse Rate 75 75 [facility] pital Height 63 63 [facility] pital Blood Pressure 101/61 101/61 [facility] Patient Treatment Plan of Care Planned Activity Planned Date Details Description Data Source (s) Mupirocin 0.02 MG/MG Topical Ointment 11/30/2019 12:00:00 AM EDT [email or web address] ([facility]) Mupirocin 0.02 MG/MG Topical Ointment 11/30/2019 12:00:00 AM EDT [email or web address] ([facility]) Mupirocin 0.02 MG/MG Topical Ointment 11/30/2019 12:00:00 AM EDT eCW1 ([facility]) chlorhexidine gluconate 40 MG/ML Medicated Liquid Soap [Hibiclens] 11/22/2019 12:00:00 AM EDT eCW1 ([facility]) Sulfamethoxazole 800 MG / Trimethoprim 160 MG Oral Tab let [Bactrim] 11/22/2019 12:00:00 AM EDT eCW1 ([facility]) chlorhexidine gluconate 40 MG/ML Medicated Liquid Soap [Hibiclens] 11/22/2019 12:00:00 AM EDT eCW1 ([facility]) Sulfamethoxazole 800 MG / Trimethoprim 160 MG Oral Tab let [Bactrim] 11/22/2019 12:00:00 AM EDT eCW1 ([facility]) chlorhexidine gluconate 40 MG/ML Medicated Liquid Soap [Hibiclens] 11/22/2019 12:00:00 AM EDT eCW1 ([facility]) Sulfamethoxazole 800 MG / Trimethoprim 160 MG Oral Tab let [Bactrim] 11/22/2019 12:00:00 AM EDT eCW1 ([facility])
[2020-07-07 13:34] LABS: BASO % 0.4 % (0.0-1.0); EOS # 0.1 10^3/uL (0.0-0.5); EOS % 0.7 % (0.0-3.0); HEMATOCRIT 34.6 % (36.0-47.0); HEMOGLOBIN 10.8 g/dl (12.0-15.5); LYMPH # 0.7 10^3/uL (1.5-5.0); LYMPH % 8.2 % (24.0-44.0); MEAN CORPUSCULAR HEMOGLOBIN 23.4 pg (27.0-33.0); MEAN CORPUSCULAR HGB CONC 31.2 g/dl (32.0-36.5); MEAN CORPUSCULAR VOLUME 75.1 fl (80.0-96.0); MONO # 0.5 10^3/uL (0.0-0.8); MONO % 6.3 % (2.0-8.0); PLATELET COUNT, AUTOMATED 293 10^3/uL (150-450); RED BLOOD COUNT 4.61 10^6/uL (4.00-5.40); WHITE BLOOD COUNT 8.3 10^3/uL (4.0-10.0)
--- OUTSIDE RECORDS SUMMARY | 2020-07-07 13:39 | CCD ---
Author Author [facility] Organization [facility] Address Unknown Phone Unavailable Support Name Relationship Address Phone DENA JACOBS Next Of Kin [address] [place] [address] Unavailable UE Next Of Kin Unknown Unavailable DENA MALHOTRA Next Of Kin [address] [place] [address] DPAO Next Of Kin [address] [place] [address] CONVERG'S Next Of Kin [address] [place] [address] CONVERGYS Next Of Kin [address] [place] [address] RODERICK ZAPATA Next Of Kin [address] [facility] [address] [address] GLO ZAPATA Next Of Kin [address] [place] [address] SETH ELLIOTT Next Of Kin [address] [facility] [address] JRC Next Of Kin [address] [place] [address] JRC* [place] [address] ARABELLA LAWRENCE Next Of Kin [address] [address] [place] [address] SMC* Next Of Kin [address] [place] [address] ARABELLA SOSA Next Of Kin [address] [facility] [address] DENA PAVON Next Of Kin [address] [place] [address] NONE HIEU MCGARRY Next Of Kin Unknown KEN PAVON Next Of Kin [address] [place], [place] [id number] JOSEPH ALLAN Next Of Kin [address] 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 Name Role Phone NUZHAT GRAHAM MD Unavailable Unavailable ASARNUZHAT MD Unavailable Unavailable ASARNUZHAT MD Unavailable Unavailable ASARNUZHAT MD Unavailable Unavailable ASANUZHAT Lao MD Unavailable Unavailable ASARNUZHAT MD Unavailable Unavailable ASARNUZHAT MD Unavailable Unavailable Cougler, S Tavon METHOD CONSULTANT Unavailable Unavailable Cougler, S Tavon METHOD CONSULTANT Unavailable Unavailable Cougler, S Tavon METHOD CONSULTANT Unavailable Unavailable Cougler, S Tavon METHOD CONSULTANT Unavailable Unavailable Cougler, S Tavon METHOD CONSULTANT Unavailable Unavailable Cougler, S Tavon METHOD CONSULTANT Unavailable Unavailable Cougler, S Tavon METHOD CONSULTANT Unavailable Unavailable Cougler, S Tavon METHOD CONSULTANT Unavailable Unavailable Cougler, S Tavon METHOD CONSULTANT Unavailable Unavailable Cougler, S Tavon METHOD CONSULTANT Unavailable Unavailable Cougler, S Tavon METHOD CONSULTANT Unavailable Unavailable Cougler, S Tavon METHOD CONSULTANT Unavailable Unavailable Cougler, S Tavon METHOD CONSULTANT Unavailable Unavailable Cougler, S Tavon METHOD CONSULTANT Unavailable Unavailable Cougler, S Tavon METHOD CONSULTANT Unavailable Unavailable Cougler, S Tavon METHOD CONSULTANT Unavailable Unavailable Cougler, S Tavon METHOD CONSULTANT Unavailable Unavailable Cougler, S Tavon METHOD CONSULTANT Unavailable Unavailable Cougler, S Tavon METHOD CONSULTANT Unavailable Unavailable Cougler, S Tavon METHOD CONSULTANT Unavailable Unavailable Cougler, S Tavon METHOD CONSULTANT Unavailable Unavailable Cougler, S Tavon METHOD CONSULTANT Unavailable Unavailable Cougler, S Tavon METHOD CONSULTANT Unavailable Unavailable Cougler, S Tavon METHOD CONSULTANT Unavailable Unavailable Cougler, S Tavon METHOD CONSULTANT Unavailable Unavailable Cougler, S Tavon METHOD CONSULTANT Unavailable Unavailable Cougler, S Tavon METHOD CONSULTANT Unavailable Unavailable Cougler, S Tavon METHOD CONSULTANT Unavailable Unavailable Cougler, S Tavon METHOD CONSULTANT Unavailable Unavailable Cougler, S Tavon METHOD CONSULTANT Unavailable Unavailable Cougler, S Tavon METHOD CONSULTANT Unavailable Unavailable Cougler, S Tavon METHOD CONSULTANT Unavailable Unavailable Cougler, S Tavon METHOD CONSULTANT Unavailable Unavailable Cougler, S Tavon METHOD CONSULTANT Unavailable Unavailable Cougler, S Tavon METHOD CONSULTANT Unavailable Unavailable Cougler, S Tavon METHOD CONSULTANT Unavailable Unavailable Cougler, S Tavon METHOD CONSULTANT Unavailable Unavailable Cougler, S Tavon METHOD CONSULTANT Unavailable Unavailable Cougler, S Tavon METHOD CONSULTANT Unavailable Unavailable Cougler, S Tavon METHOD CONSULTANT Unavailable Unavailable MARAVEGIAS, N ISMENE MD Unavailable [...] Unavailable JANE, A JOSEPH PA Unavailable Unavailable JNAE, A JOSEPH PA Unavailable Unavailable JANE, A JOSEPH PA Unavailable Unavailable JANE, A JOSEPH PA Unavailable Unavailable JANE, A JOSEPH PA Unavailable Unavailable Stone, Rosa Unavailable Re-disclosure Warning The records that [...] is protected by Article 27-F of the [facility] Public Health law. If you continue you may have access to information: Regarding HIV / AIDS; Provided by facilities licensed or operated by the [facility] Office of Mental Health; or Provided by the [facility] Office for People With Developmental Disabilities. If such information is present, then the following [facility] mandated warning applies: This information has [...] law may result in a fine or chcf sentence or both. A general authorization for the release of medical or other information is NOT sufficient authorization for further disc losure. Allergies and Adverse Reactions Type Description Substance Reaction Status Data Source(s ) Drug allergy Drug allergy No Known Allergies [facility] Drug allergy Drug allergy No Known Allergies [facility] Family History Family Member Name Family Member Gender Family Member Status Date o f Status Description Data Source(s) Unknown Unknown Problem [facility] ([facility]) Encounters Encounter Providers Location Date Indications Data Source(s ) Inpatient Attender: Nuzhat Valencia nder: NUZHAT GRAHAM MDAdmitter: NUZHAT GRAHAM MD [facility] 02/05/2020 05:01:00 PM EDT - 02/08/2020 03:05:00 PM EDT PSYCHOACTIVE SUBSTANCE DEPENDENCE [facility] PSYCHOACTIVE SUBSTANCE DEPENDENCE Patient discharged. Unknown [address] [facility] [address] 11/30/2019 12:00:00 AM EDT eCW1 ([facility]) Emergency Attender: CITLALLI BHAGAT MDAttender: JOSEPH CAREY ED-ED 11/28/2019 07:49:00 AM EDT - 11/28/2019 10:00:00 AM EDT ARM PAIN [facility] ARM PAIN Patient discharged. Unknown [address] [facility] [address] 11/27/2019 12:00:00 AM EDT eCW1 ([facility]) Outpatient [address] [facility] [address] 11/22/2019 12:00:00 AM EDT eCW1 ([facility]) Emergency Attender: Tavon Marroquin NP ED-ED 11/05 01:20:00 PM EDT - 11/06/2019 01:48:00 PM EDT LT EYE SWELLING [facility] LT EYE SWELLING Patient discharged. Psychiatric Diagnostic Evaluation (Non-Medical) Attender: Jovan Burks [facility] 07/25/2019 12:30:00 PM EDT - 07/25/2019 12:30:00 PM EDT [facility] ([facility]) Attender: Rosa Burks 07/25/2019 12:00:00 AM E DT [facility] ([facility]) Extended Individual Psychotherapy - 45 min Attender: Wolfgang Burks [facility] 07/19/2019 01:45:00 AM EST - 07/19/2019 01:45:00 AM EST [facility] ([facility]) Attender: Rosa Burks 07/19/2019 12:00:[address] [facility] ([facility]) Medications Medication Brand Name Start Date Product Form Dose Route Admi nistrative Instructions Pharmacy Instructions Status Indications Reaction Description Data Source(s) Mupirocin 0.02 MG/MG Topical Ointment Mupirocin 2 % Mupiroci n 2 % 11/30/2019 12:00:00 AM EDT 1.0 {application} active Mupirocin 2 % eCW1 ([facility]) Mupirocin 0.02 MG/MG Topical Ointment Mupirocin 2 % Mupiroci n 2 % 11/30/2019 12:00:00 AM EDT 1.0 {application} active Mupirocin 2 % eCW1 ([facility]) Mupirocin 0.02 MG/MG Topical Ointment Mupirocin 2 % Mupiroci n 2 % 11/30/2019 12:00:00 AM EDT 1.0 {application} active Mupirocin 2 % eCW1 ([facility]) Sulfamethoxazole 800 MG / Trimethoprim 1 60 MG Oral Tablet [Bactrim] Bactrim DS 800-160 MG Bactrim DS 800-160 MG 11/22/2019 12:00:00 AM EDT 1.0 {table t} active Bactrim DS 800-160 MG eCW1 ( [facility]) chlorhexidine gluconate 40 MG/ML Medicat ed Liquid Soap [Hibiclens] Hibiclens 4 % Hibiclens 4 % 11/22/2019 12:00:00 AM EDT act paul Hibiclens 4 % eCW1 ([facility]) chlorhexidine gluconate 40 MG/ML Medicat ed Liquid Soap [Hibiclens] Hibiclens 4 % Hibiclens 4 % 11/22/2019 12:00:00 AM EDT act paul Hibiclens 4 % eCW1 ([facility]) Sulfamethoxazole 800 MG / Trimethoprim 1 60 MG Oral Tablet [Bactrim] Bactrim DS 800-160 MG Bactrim DS 800-160 MG 11/22/2019 12:00:00 AM EDT 1.0 {table t} active Bactrim DS 800-160 MG eCW1 ( [facility]) Sulfamethoxazole 800 MG / Trimethoprim 1 60 MG Oral Tablet [Bactrim] Bactrim DS 800-160 MG Bactrim DS 800-160 MG 11/22/2019 12:00:00 AM EDT 1.0 {table t} active Bactrim DS 800-160 MG eCW1 ( [facility]) chlorhexidine gluconate 40 MG/ML Medicat ed Liquid Soap [Hibiclens] Hibiclens 4 % Hibiclens 4 % 11/22/2019 12:00:00 AM EDT act paul Hibiclens 4 % eCW1 ([facility]) 5 mg 10/17/2019 12:00:00 AM EDT tablet 14 TAKE ONE TABLET BY MOUTH AT BEDTIME TAKE ONE TABLET BY MOUTH AT BEDTIME SOLD: 10/17/2019 [facility] 10 mg 10/17/2019 12:00:00 AM EDT tablet 14 TAKE ONE TABLET BY MOUTH EVERY DAY TAKE ONE TABLET BY MOUTH EVERY DAY SOLD: 10/17/2019 [facility] Insurance Providers Payer name Policy type / Coverage type Policy ID Covered constitution party ID Covered constitution party's relationship to cordova Policy [place] Plan Information RODERICK [id number] SP [id number] [facility] [place] [id number] Unemployed [id number] [facility] [place] [id number] Unemployed [id number] [place] [facility] [place] [id number] S [id number] R[place]ICK [id number] SP [id number] SELF PAY ONLY - SP1 SP [id number] SPOUSE [id number] SELF PAY ONLY [id number] SP [id number] [facility] [id number] SP [id number] MEDICAID [id number] SP [id number] [facility] [id number] SP [id number] ANSI-Medicaid [id number] ANSI-Medicaid [id number] BCBS FEDERAL EMPLOYEE PROGRAM [id number] [facility] Health Maintenance Organization (HMO) [id number] Self [id number] ANSI-Medicaid [id number] ANSI-Medicaid [id number] SELF PAY UNAVAILABLE SP UNAVAILA BLE ANSI-Medicaid [id number] ANSI-Medicaid [id number] ANSI-Medicaid [id number] ANSI-Medicaid [id number] [facility] [id number] SP [id number] ANSI-Medicaid [id number] ANSI-Medicaid [id number] ANSI-Medicaid [id number] ANSI-Medicaid [id number] ANSI-Medicaid [id number] ANSI-Medicaid [id number] [place]BS [place] PPO 302/307 [id number] SP [id number] ANSI-Medicaid [id number] ANSI-Medicaid [id number] ANSI-Medicaid [id number] ANSI-Medicaid [id number] MEDICAID M [id number] S [id number] ANSI-Medicaid [id number] ANSI-Not a Secondary Insurance [id number] ANSI-Medicaid [id number] ANSI-Medicaid [id number] ANSI-Not a Secondary Insurance [id number] BCBS FEDERAL EMPLOYEE PROGRAM [id number] SP [id number] [facility] [id number] SP [id number] BC OF [place] 306/806 [id number] ANSI-Medicaid [id number] ANSI-Not a Secondary Insurance [id number] [facility] I [id number] Self [id number] MEDICAID M [id number] Self [id number] UNHC COMMUNITY PLAN XIX [id number] 18 [id number] [facility] I [id number] Self [id number] U [id number] Self [id number] U [id number] Self [id number] [facility] [place] [facility] [id number] [facility] [id number] [facility] CARE MEDICAID [facility] HMO [id number] S [id number] [facility] [place] [facility] [id number] CHILD [id number] MEDICAID [facility] [id number] S [id number] [place] [id number] S [id number] [place] Medicaid/CHP/FHP Commercial Self MEDICAID -CLINIC [id number] UNHC AMERICHOICE XIX -HMO [id number] 18 [id number] [facility]ICAID [facility] [id number] S [id number] SELF PAY SP UNAVAILABLE S UNAVAILA BLE [facility] COMM PLAN ANABELLE W [id number] S [id number] AMERICHOICE UNHC XIX HMO-I/P [id number] 18 [id number] UNHC XIX HMO-O/P [id number] 18 [id number] UNHC XIX HMO-CLINIC [id number] 18 [id number] BCBS OF [place] [id number] YOU [id number] UNHC XIX HMO-CLINIC [id number] 18 [id number] UNHC AMERICHOICE XIX HMO [id number] 18 [id number] MEDICAID - CLINIC PENDING 18 PE NDING [id number] Problems, Conditions, and Diagnoses Code Display Name Description Problem Type Effective Dates Data Source(s) B19.20 94697910 Hepatitis C virus in fection without hepatic coma, unspecified chronicity Problem 11/22/2019 12:00:00 AM EDT eCW1 ([facility]) F31.9 [id number] Bipolar disorder with depression Problem 11/22/2019 12:00:00 AM EDT eCW1 ([facility]) L02.93 [id number] Recurrent boils Problem 11/22/2019 12:00:00 AM EDT eCW1 ([facility]) F11.10 [id number] Heroin abuse Problem 11/22/2019 12:00:00 AM EDT eCW1 ([facility]) F15.20 Other stimulant dependence, uncomplicate d Stimulant Use Disorder, Severe: Other or unspecified stimulant Condition 07/25/2019 12:00:00 AM EDT [facility] ([facility]) F31.9 Bipolar disorder, unspecified Bipolar I Disorder, Current or most recent episode manic, Unspecified Condition 07/25/2019 12:00:00 AM EDT [facility] ([facility]) Z59.0 Homelessness HOMELESSNESS Diagnosis 02/05/2020 05:01:00 P M [facility] Z91.5 Personal history of self-harm PERSONAL HISTORY OF SELF -HARM Diagnosis 02/05/2020 05:01:00 PM [facility] F43.10 Post-traumatic stress disorder, unspecif ied POST-TRAUMATIC STRESS DISORDER, UNSPECIFIED Diagnosis 02/05/2020 05:01:00 PM [facility] F90.9 Attention-deficit hyperactivity disorder , unspecified type ATTENTION- DEFICIT HYPERACTIVITY DISORDER, UNSPECIFIED TYPE Diagnosis 02/04 05:01:00 PM [facility] F41.9 Anxiety disorder, unspecified ANXIETY DISORDER, UNSPEC IFIED Diagnosis 02/05/2020 05:01:00 PM [facility] F31.9 Bipolar disorder, unspecified BIPOLAR DISORDER, UNSPEC IFIED Diagnosis 02/05/2020 05:01:00 PM [facility] K21.9 Gastro-esophageal reflux disease without esophagitis GASTRO-ESOPHAGEAL REFLUX DISEASE WITHOUT ESOPHAGITIS Diagnosis 02/05/2020 05:01:00 PM ED [facility] E06.3 Autoimmune thyroiditis AUTOIMMUNE THYROIDITIS Diagnosi s 02/05/2020 05:01:00 PM [facility] Z98.84 Bariatric surgery status BARIATRIC SURGERY STATUS Diag nosis 02/05/2020 05:01:00 PM [facility] E55.9 Vitamin D deficiency, unspecified VITAMIN D DEFI CIENCY, UNSPECIFIED Diagnosis 02/05/2020 05:01:00 PM [facility] B18.2 Chronic viral hepatitis C CHRONIC VIRAL HEPATITIS C Di agnosis 02/05/2020 05:01:00 PM [facility] Z53.29 Procedure and treatment not carried out because of patient's decision for other reasons PROC/TRTMT NOT CRD OUT BEC PT DECISION FOR OTH REASONS Diagn osis 02/05/2020 05:01:00 PM [facility] F17.210 Nicotine dependence, cigarettes, uncompl icated NICOTINE DEPENDENCE, CIGARETTES, UNCOMPLICATED Diagnosis 02/05/2020 05:01:00 PM [facility] F14.10 Cocaine abuse, uncomplicated COCAINE ABUSE, UNCOMPLICA STEPHANE Diagnosis 02/05/2020 05:01:00 PM [facility] 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, uncomplicated H ALLUCINOGEN DEPENDENCE, UNCOMPLICATED Diagnosis 02/05/2020 05:01:00 PM [facility] F11.20 Opioid dependence, uncomplicated OPIOID DEPENDEN CE, UNCOMPLICATED Diagnosis 02/05/2020 05:01:00 PM [facility] Surgeries/Procedures Procedure Description Date Indications Data Source(s) Individual Counseling for Substance Abuse Treatment, C ognitive-Behavioral INDIV SHIPFITTER FOR SUBSTANCE ABUSE, COGNITIVE BEHAVIORAL 02/07/2020 12:00:00 AM [facility] Group Counseling for Substance Abuse Treatment, Motiva tional Enhancement GROUP SHIPFITTER FOR SUBSTANCE ABUSE, MOTIVATIONAL ENHANCE 02/07/2020 12:00:00 AM [facility] Group Counseling for Substance Abuse Treatment, Spirit ual GROUP COUNSELING FOR SUBSTANCE ABUSE TREATMENT, SPIRITUAL 02/07/2020 12:00:00 AM [facility] Group Counseling for Substance Abuse Treatment, Cognit paul-Behavioral GROUP SHIPFITTER FOR SUBSTANCE ABUSE, COGNITIVE BEHAVIORAL 02/07/2020 12:00:00 AM [facility] Psychiatric Diagnostic Evaluation (Non-Medical) 07/25/2019 12:00:00 AM EDT - 07/25/2019 12:00:00 AM EDT [facility] ([facility]) Psychiatric Diagnostic Evaluation (Non-Medical) 2019 12:00:00 AM [facility] Extended Individual Psychotherapy - 45 min 07/19/2019 12:00:00 AM EST - 07/19/2019 12:00:00 AM EST [facility] ([facility]) Extended Individual Psychotherapy - 45 min 0 12:00:00 AM EST [facility] ([facility]) Results ID Date Data Source [id number] 02/06/2020 09:28:00 AM EDT [facility] Name Value Range Interpretation Code Description Data Gabby rce(s) Supporting Document(s) White Blood Count 4.8-10.8 Below low normal [facility] Red Blood Count 3.68-5.22 Normal (applies to non-numeric results) [facility] Hemoglobin 11.2-15.7 Below low normal [facility] Hematocrit 34.1-44.9 Below low normal [facility] Mean Corpuscular Volume 81-99 Below low normal [facility] Mean Corpuscular Hemoglobin 27.0-33.0 Below low normal [facility] Mean Corpuscular HGB Conc 32.0-36.0 Normal (applies to no n-numeric results) [facility] Red Cell Distribution Width 11.5-14.5 Above high normal [facility] Platelet Count 319 X10 3/uL 130-450 Normal (applies to non-numeric results) [facility] Mean Platelet Volume 9.5-12.7 Below low normal Ca [facility] Imm Grans% (AUTO) 0 % 0-2 Normal (applies to non-numeri c results) [facility] Neutrophils % (AUTO) 64 % 40-75 Normal (applies to non-num gomez results) [facility] Lymphocytes % (AUTO) 27 % 21-46 Normal (applies to non-num gomez results) [facility] Monocytes % (AUTO) 6 % 5-12 Normal (applies to non-numer ic results) [facility] Eosinophils % (AUTO) 2 % 1-5 Normal (applies to non-num gomez results) [facility] Basophils % (AUTO) 0 % 0-1 Normal (applies to non-numer ic results) [facility] Imm Grans# (AUTO) 0.0-0.5 Normal (applies to non-numeri c results) [facility] Neutrophils # (AUTO) 1.5-8.1 Normal (applies to non-num gomez results) [facility] Lymphocytes # (AUTO) 1.0-3.1 Normal (applies to non-num gomez results) [facility] Monocytes # (AUTO) 0.2-1.3 Normal (applies to non-numer ic results) [facility] Eosinophils# (AUTO) 0.0-0.5 Normal (applies to non-nume marcell results) [facility] Basophils # (AUTO) 0.0-0.1 Normal (applies to non-numer ic results) [facility] ID Date Data Source [id number] 02/06/2020 09:52:00 AM EDT [facility] Name Value Range Interpretation Code Description Data Gabby rce(s) Supporting Document(s) Sodium 141 mmol/L 137-145 Normal (applies to non-numeric resul ts) [facility] Potassium 3.5-5.1 Normal (applies to non-numeric resul ts) [facility] Chloride 110 mmol/L 98-112 Normal (applies to non-numeric resul ts) [facility] Carbon Dioxide CO2 22.0-33.0 Normal (applies to non-numer ic results) [facility] Anion Gap 4.0-11.0 Below low normal [facility] BUN 10 mg/dL 7-17 Normal (applies to non-numeric resul ts) [facility] Creatinine 0.70-1.20 Normal (applies to non-numeric resul ts) [facility] GFR 80 mL/min >60 Normal (applies to non-numeric resul ts) [facility] Result based on MDRD formula. Glucose Level 139 mg/dL 74-99 Above high normal [facility] The reference range is only applicable w hen fasting. Calcium-Uncorrected 8.4-10.2 Normal (applies to non-nume marcell results) [facility] Corrected Calcium 8.4-10.2 Normal (applies to non-numeri c results) [facility] Bilirubin,Total 0.2-1.3 Normal (applies to non-numeric results) [facility] Bilirubin,Direct 0.0-0.3 Normal (applies to non-numeric results) [facility] SGOT(AST) 49 U/L 14-36 Above high normal [facility] SGPT(ALT) 57 U/L 9-52 Above high normal [facility] Alkaline Phosphatase 73 U/L 38-126 Normal (applies to non-num gomez results) [facility] can increase Alkaline Phosp le vels up to 2 times the normal adult value. Normal values for children and adolescents are 2 to 3 times the normal adult value. CPK 111 U/L 26-192 Normal (applies to non-numeric resul ts) [facility] Total Protein 6.3-8.2 Normal (applies to non-numeric re sults) [facility] Albumin 3.5-5.0 Normal (applies to non-numeric resul ts) [facility] Thyroid Stimulate Hormone TSH 0.358-3.740 No rmal (applies to non-numeric results) [facility] ID Date Data Source [id number] 02/06/2020 09:52:00 AM EDT [facility] Name Value Range Interpretation Code Description Data Gabby rce(s) Supporting Document(s) Magnesium 1.80-2.40 Normal (applies to non-numeric resul ts) [facility] ID Date Data Source [id number] 02/06/2020 09:52:00 AM EDT [facility] Name Value Range Interpretation Code Description Data Gabby rce(s) Supporting Document(s) C-Reactive Protein,Wide Range <3.00 Above high normal [facility] ID Date Data Source [id number] 02/06/2020 10:37:00 AM EDT [facility] Name Value Range Interpretation Code Description Data Gabby rce(s) Supporting Document(s) Hep Bs Ag Result T-Test Nonreactive Normal (applies to non -numeric results) [facility] ID Date Data Source [id number] 02/06/2020 10:37:00 AM EDT [facility] Name Value Range Interpretation Code Description Data Gabby rce(s) Supporting Document(s) Vitamin D,Total (25OH) 30.0-100.0 Below low normal [facility] Reference Range: <10 ng/mL: Deficien t 10-30 ng/mL: Insufficient 30-100 ng/mL: Sufficient >100 ng/mL: Toxicity possible ID Date Data Source [id number] 02/06/2020 10:37:00 AM EDT [facility] Name Value Range Interpretation Code Description Data Gabby rce(s) Supporting Document(s) HAVM Nonreactive Normal (applies to non-numeric resu lts) [facility] ID Date Data Source [id number] 02/06/2020 10:37:00 AM EDT [facility] Name Value Range Interpretation Code Description Data Gabby rce(s) Supporting Document(s) Syphilis Serology Nonreactive Normal (applies to non-numer ic results) [facility] ID Date Data Source [id number] 02/08/2020 05:56:00 PM EDT [facility] Name Value Range Interpretation Code Description Data Gabby rce(s) Supporting Document(s) Chlamydia,Urine Negative Normal (applies to non-numeric results) [facility] GC Urine Negative Normal (applies to non-numeric resul ts) [facility] Methodology: Second generation nucleic a jerel amplification. ID Date Data Source [id number] 02/08/2020 07:51:00 AM EDT [facility] Name Value Range Interpretation Code Description Data Gabby rce(s) Supporting Document(s) Urine Culture [facility] ID Date Data Source [id number] 02/08/2020 07:51:00 AM EDT [facility] Name Value Range Interpretation Code Description Data Gabby rce(s) Supporting Document(s) Vancomycin 1 Susceptible. Indicates for m icrobiology susceptibilities only. [facility] Doxycycline Susceptible. Indicates for m icrobiology susceptibilities only. [facility] Daptomycin 1 Susceptible. Indicates for m icrobiology susceptibilities only. [facility] Gentamicin Susceptible. Indicates for microbiol ogy susceptibilities only. [facility] Linezolid 2 Susceptible. Indicates for microbiol ogy susceptibilities only. [facility] Moxifloxacin Susceptible. Indicates for m icrobiology susceptibilities only. [facility] Nitrofurantoin 32 Susceptible. Ind icates for microbiology susceptibilities only. [facility] Oxacillin BONY Susceptible. Ind icates for microbiology susceptibilities only. [facility] Rifampin Susceptible. Indicates for microbiol ogy susceptibilities only. [facility] Tetracycline Susceptible. Indicates for m icrobiology susceptibilities only. [facility] Trimeth/Sulfamethoxazole Suscept ible. Indicates for microbiology susceptibilities only. [facility] ID Date Data Source [id number] 02/05/2020 05:54:00 PM EDT [facility] Name Value Range Interpretation Code Description Data Gabby rce(s) Supporting Document(s) SARS-CoV-2 RNA Negative Normal (applies to non-numeric r esults) [facility] Negative results should be treated as [...] Certificate of Accreditation. Factsheets for healthcare providers: https://www.fda.gov/media/507978/download Factsheets for patients: https://www.fda.gov/media/396504/download THIS IS A STATE REPORTABLE COMMUNICABLE DISEASE. Manual entry verified by Blessing Alberts 02/05/20 175 ID Date Data Source [id number] 02/05/2020 09:23:00 PM EDT [facility] Name Value Range Interpretation Code Description Data Gabby rce(s) Supporting Document(s) Color,Urine Yellow Normal (applies to non-numeric resu lts) [facility] Clarity,Urine Clear Normal (applies to non-numeric re sults) [facility] Specific [place],Urine 1.001-1.030 Normal (applies to non- numeric results) [facility] PH,Urine 4.6-8.0 Normal (applies to non-numeric resul ts) [facility] Protein,Urine Negative Normal (applies to non-numeric re sults) [facility] Glucose,Urine (UA) Negative Normal (applies to non-numer ic results) [facility] Ketones,Urine Negative Normal (applies to non-numeric re sults) [facility] Blood,Urine Negative Normal (applies to non-numeric resu lts) [facility] Bilirubin,Urine Negative Normal (applies to non-numeric results) [facility] Urobilinogen,Urine Norm 0.2-1 Normal (applies to non-numer ic results) [facility] Leukocyte Esterase,Urine Negative Normal (applies to non -numeric results) [facility] Nitrite,Urine Negative [facility] ID Date Data Source [id number] 02/05/2020 09:23:00 PM EDT [facility] Name Value Range Interpretation Code Description Data Gabby rce(s) Supporting Document(s) Urine HCG Negative Normal (applies to non-numeric resul ts) [facility] ID Date Data Source [id number] 02/05/2020 09:23:00 PM EDT [facility] Name Value Range Interpretation Code Description Data Gabby rce(s) Supporting Document(s) WBC,URINE 0-10 [facility] RBC,Urine 0-2 [facility] arline Hyaline Casts,Ur None Seen [facility] Bacteria,Urine None Seen [facility] Epithelial Cell,Ur None-Few [facility] ID Date Data Source [id number] 02/05/2020 08:04:00 PM EDT [facility] Name Value Range Interpretation Code Description Data Gabby rce(s) Supporting Document(s) Opiate Screen,Urine Negative Normal (applies to non-nume marcell results) [facility] Amphetamine Screen,Urine Negative [facility] Benzodiazepines Scrn,Ur result Negative N ormal (applies to non-numeric results) [facility] Cocaine Screen,Urine Negative Normal (applies to non-num gomez results) [facility] Methadone Screen,Urine Negative Normal (applies to non-n umeric results) [facility] Cannabinoid Screen, Ur Negative Normal (applies to non-n umeric results) [facility] Therapeutic Drug Ranges for Emergency an [...] ID Date Data Source HEPATITIS C FIBROSURE [id number] 11/29/2019 04:27:24 AM EDT eC W1 ([facility]) Name Value Range Interpretation Code Description Data Gabby rce(s) Supporting Document(s) 0.13 eCW1 ([facility]) eCW1 ([facility]) 0.75 eCW1 ([facility]) A3-Severe activity eCW1 ([facility] 240 eCW1 ([facility]) 136 eCW1 ([facility]) 0.2 eCW1 ([facility]) 136 eCW1 ([facility]) 96 eCW1 ([facility]) eCW1 ([facility]) eCW1 ([facility]) 189 eCW1 ([facility]) eCW1 ([facility]) eCW1 ([facility]) eCW1 ([facility]) ID Date Data Source HEPATITIS C GENOTYPE 11/29/2019 04:27:24 AM EDT eCW1 ([facility]) Name Value Range Interpretation Code Description Data Gabby rce(s) Supporting Document(s) eCW1 ([facility]) 1b eCW1 ([facility]) ID Date Data Source HEPATITIS C QUANT BY PCR 11/29/2019 04:27:24 AM EDT eCW1 ([facility]) Name Value Range Interpretation Code Description Data Gabby rce(s) Supporting Document(s) 5.194 eCW1 ([facility]) [id number] eCW1 ([facility]) ID Date Data Source HEPATITIS B CORE ANTIBODY IGG 11/29/2019 04:27:23 AM EDT eCW 1 ([facility]) Name Value Range Interpretation Code Description Data Gabby rce(s) Supporting Document(s) Negative eCW1 ([facility]) ID Date Data Source HEPATITIS A IgG 11/29/2019 04:27:23 AM EDT eCW1 ([facility]) Name Value Range Interpretation Code Description Data Gabby rce(s) Supporting Document(s) Negative eCW1 ([facility]) ID Date Data Source [id number] 11/28/2019 02:29:00 PM EDT [facility] Imaging Services Department Imaging Report [address] [place] [address] %(RAD)RES..mtdd.print.filter("line") Name: GIO ZAPATA : 1990 Age/Sex: 29F Ordering Provider: Citlalli Bhagat MD Med Rec #: [id number] Reg Status: DEP ER Room #: Date of Service: 11/28/19 Report Number: [id number] cc:Citlalli Bhagat MD; PCP None Send Report To: [id number] US/US Dup Upper Ext Vein Bilat Reason [...] Date/Time: 11/28/19 1026 Transcribed Date/Time: 11/28/19 1429 Social Studies Teacher: ELAINE Name Value Range Interpretation Code Description Data Gabby rce(s) Supporting Document(s) ID Date Data Source WOUND CULTURE AND GRAM ST 11/27/2019 02:28:29 AM EDT eCW1 ([facility]) Name Value Range Interpretation Code Description Data Gabby rce(s) Supporting Document(s) eCW1 ([facility]) ID Date Data Source [id number] 11/23/2019 11:22:09 AM EDT eCW1 ([facility]) Name Value Range Interpretation Code Description Data Gabby rce(s) Supporting Document(s) eCW1 ([facility]) ID Date Data Source HEPATITIS B SURFACE ANTIGEN 11/23/2019 11:22:09 AM EDT eCW1 ([facility]) Name Value Range Interpretation Code Description Data Gabby rce(s) Supporting Document(s) NEGATIVE eCW1 ([facility]) ID Date Data Source HEPATITIS B SURFACE ANTIBODY 11/23/2019 11:22:09 AM EDT eCW1 ([facility]) Name Value Range Interpretation Code Description Data Gabby rce(s) Supporting Document(s) NEGATIVE eCW1 ([facility]) ID Date Data Source Comprehensive Metabolic Profile (CMP) 11/23/2019 11:22:09 AM EDT eCW1 ([facility]) Name Value Range Interpretation Code Description Data Gabby rce(s) Supporting Document(s) 12 eCW1 ([facility]) 63 eCW1 ([facility]) > 60.0 eCW1 ([facility]) 0.74 [facility] 142 eCW1 [facility] 30 eCW1 [facility] 5.0 eCW1 [facility] 107 eCW1 [facility] 198 eCW1 [facility] 128 eCW1 [facility] 114 eCW1 [facility] 9[facility]4 eCW1 [facility] 3.5 eCW1 [facility] 7.0 eCW1 [facility] 1.0 eCW1 [facility]) 0.2 eCW1 [facility] ID Date Data Source CBC with Differential 11/23/2019 11:22:09 AM EDT [facility] Name Value Range Interpretation Code Description Data Gabby rce(s) Supporting Document(s) 4.8 eCW1 ([facility] 4.02 eCW1 ([facility]) 9.7 eCW1 ([facility]) 24.1 eCW1 ([facility]) 31.8 eCW1 ([facility]) 79.1 eCW1 ([facility]) 333 eCW1 ([facility]) 30.5 eCW1 [facility] 13[facility]2 eCW1 [facility] 12.4 eCW1 [facility] 48.8 eCW1 ([facility]) 35.7 eCW1 [facility] 2.4 eCW1 [facility] 0.6 eCW1 ([facility] 2.1 eCW1 ([facility]) 1.7 [facility] 0.1 eCW1 ([facility]) 0.6 eCW1 ([facility]) 0.0 eCW1 ([facility]) Procedure Social History Code Duration Value Status Description Data Source(s ) Smoking 11/22/2019 12:00:00 AM EDT Never Smoker completed Never S moker eCW1 ([facility]) Smoking 11/22/2019 12:00:00 AM EDT Never Smoker completed Never S moker eCW1 ([facility]) Smoking 11/22/2019 12:00:00 AM EDT Never Smoker completed Never S moker eCW1 ([facility]) Smoking 07/25/2019 12:00:00 AM EDT Unknown if ever smoked comp leted Unknown if ever smoked [facility] ([facility]) Smoking 07/19/2019 12:00:00 AM EST Unknown if ever smoked comp leted Unknown if ever smoked [facility] ([facility]) Vital Signs ID Date Data Source UNK Name Value Range Interpretation Code Description Data Source(s) Diastolic blood pressure 52 mm[Hg] 52 mm[Hg] eCW1 ([facility]) Systolic blood pressure 124 mm[Hg] 124 mm[Hg] e CW1 ([facility]) Body temperature 97.6 [degF] 97.6 [degF] eCW1 ( [facility]) Respiratory rate 16 /min 16 /min eCW1 ([facility]) Heart rate 89 /min 89 /min eCW1 ([facility]) Body mass index (BMI) [Ratio] 22.96 kg/m2 22.96 kg/m2 eCW1 ([facility]) Body height 65 [in_i] 65 [in_i] eCW1 ([facility]) Body weight 138 [lb_av] 138 [lb_av] eCW1 [facility] Body weight 112.00 [lb_av] 112.00 [lb_av] MEDEN T ([facility]) Body temperature 97.3 [degF] 97.3 [degF] MEDENT ([facility]) Respiratory rate 18 /min 18 /min MEDENT ( [facility]) Heart rate 92 /min 92 /min MEDENT ([facility]) Diastolic blood pressure 67 mm[Hg] 67 mm[Hg] MEDENT ([facility]) Systolic blood pressure 115 mm[Hg] 115 mm[Hg] M EDENT ([facility]) ID Date Data Source [id number] 02/13/2020 04:19:00 AM EDT [facility] Name Value Range Interpretation Code Description Data Source(s) Weight Measurement Method 1 1 [facility] Weight (Calculated Kilograms) 49.90 49.90 [facility] Weight 1760 1760 [facility] Temperature Source 7 7 [facility] Temperature 97.5 97.5 [facility] Respiratory Effort 1 1 [facility] Respiratory Rate 16 16 [facility] Pulse Assessment Method [address] [facility] Pulse Rate 70 70 [facility] Height (Calculated Centimeters) 160.02 160. 02 [facility] Height 63 63 [facility] Blood Pressure 100/61 100/61 [facility] Body Mass Index (BMI) 19.5 19.5 [facility] Weight Measurement Method 1 1 [facility] Weight (Calculated Kilograms) 49.90 49.90 [facility] Weight 1760 1760 [facility] Temperature Source 7 7 [facility] Temperature 97.5 97.5 [facility] Respiratory Effort 1 1 [facility] Respiratory Rate 16 16 [facility] Pulse Assessment Method [address] [facility] Pulse Rate 70 70 [facility] Height (Calculated Centimeters) 160.02 160. 02 [facility] Height 63 63 [facility] Blood Pressure 100/61 100/61 [facility] Body Mass Index (BMI) 19.5 19.5 [facility] Weight Measurement Method 1 1 [facility] Weight (Calculated Kilograms) 49.90 49.90 [facility] Weight 1760 1760 [facility] Temperature Source 7 7 [facility] Temperature 97.5 97.5 [facility] Respiratory Effort 1 1 [facility] Respiratory Rate 16 16 [facility] Pulse Assessment Method [address] [facility] Pulse Rate 70 70 [facility] Height (Calculated Centimeters) 160.02 160. 02 [facility] Height 63 63 [facility] Blood Pressure 100/61 100/61 [facility] Body Mass Index (BMI) 19.5 19.5 [facility] Weight Measurement Method 1 1 [facility] Weight (Calculated Kilograms) 49.90 49.90 [facility] Weight 1760 1760 [facility] Temperature Source 7 7 [facility] Temperature 97.5 97.5 [facility] Respiratory Effort 1 1 [facility] Respiratory Rate 14 14 [facility] Pulse Assessment Method [address] [facility] Pulse Rate 70 70 [facility] Height (Calculated Centimeters) 160.02 160. 02 [facility] Height 63 63 [facility] Blood Pressure 100/61 100/61 [facility] Body Mass Index (BMI) 19.5 19.5 [facility] Weight Measurement Method 1 1 [facility] Weight (Calculated Kilograms) 49.90 49.90 [facility] Weight 1760 1760 [facility] Temperature Source 7 7 [facility] Temperature 97.4 97.4 [facility] Respiratory Effort 1 1 [facility] Respiratory Rate 16 16 [facility] Pulse Assessment Method [address] [facility] Pulse Rate 70 70 [facility] Height (Calculated Centimeters) 160.02 160. 02 [facility] Height 63 63 [facility] Blood Pressure 100/61 100/61 [facility] Body Mass Index (BMI) 19.5 19.5 [facility] Weight Measurement Method 1 1 [facility] Weight (Calculated Kilograms) 49.90 49.90 [facility] Weight 1760 1760 [facility] Temperature Source 7 7 [facility] Temperature 97.9 97.9 [facility] Respiratory Effort 1 1 [facility] Respiratory Rate 16 16 [facility] Pulse Assessment Method [address] [facility] Pulse Rate 86 86 [facility] Height (Calculated Centimeters) 160.02 160. 02 [facility] Height 63 63 [facility] Blood Pressure 127/74 127/74 [facility] Body Mass Index (BMI) 19.5 19.5 [facility] ID Date Data Source [id number] 11/29/2019 09:57:00 AM EDT [facility] Name Value Range Interpretation Code Description Data Source(s) Weight Measurement Method 8 8 [facility] Weight 2079 2079 [facility] pital Temperature Source 3 3 [facility] Temperature 97.0 97.0 [facility] Respiratory Effort 1 1 [facility] Respiratory Rate 16 16 [facility] Pulse Assessment Method 4 4 [facility] Pulse Rate 69 69 [facility] pital Height 63 63 [facility] Pressure 103/65 103/65 [facility] Weight Measurement Method 8 8 [facility] Weight 2079 2079 [facility] pital Temperature Source 3 3 [facility] Temperature [address] [facility] spital Respiratory Effort 1 1 [facility] Respiratory Rate 18 18 [facility] Pulse Assessment Method 4 4 [facility] Pulse Rate 96 96 [facility] pital Height 63 63 [facility] Blood Pressure 109/84 109/84 [facility] Weight Measurement Method 8 8 [facility] Weight 2079 2079 [facility] pital Temperature Source 3 3 [facility] Temperature 96.8 96.8 [facility] Respiratory Effort 1 1 [facility] Respiratory Rate 18 18 [facility] Pulse Assessment Method 4 4 [facility] Pulse Rate 96 96 [facility] pital Height 63 63 [facility] Blood Pressure 109/84 109/84 [facility] Weight Measurement Method 8 8 [facility] Weight 2079 2079 [facility] pital Temperature Source 3 3 [facility] Temperature 96.8 96.8 [facility] Respiratory Effort 1 1 [facility] Respiratory Rate 18 18 [facility] Pulse Assessment Method 4 4 [facility] Pulse Rate 96 96 [facility] pital Height 63 63 [facility] pital Blood Pressure 109/84 109/84 [facility] ID Date Data Source [id number] 11/06/2019 02:02:[address] [facility] spital Name Value Range Interpretation Code Description Data Source(s) Weight Measurement Method 8 8 [facility] Weight 2063 2063 [facility] pital Temperature Source 7 7 [facility] Temperature [address] [facility] spital Respiratory Effort 1 1 [facility] Respiratory Rate 16 16 [facility] Pulse Assessment Method 4 4 [facility] Pulse Rate 75 75 [facility] pital Height 63 63 [facility] Blood Pressure 101/61 101/61 [facility] Weight Measurement Method 8 8 [facility] Weight 2063 2063 [facility] pital Temperature Source 7 7 [facility] Temperature [address] [facility] spital Respiratory Effort 1 1 [facility] Respiratory Rate 16 16 [facility] Pulse Assessment Method 4 4 [facility] Pulse Rate 75 75 [facility] pital Height 63 63 [facility] pital Blood Pressure 101/61 101/61 [facility] Patient Treatment Plan of Care Planned Activity Planned Date Details Description Data Source (s) Mupirocin 0.02 MG/MG Topical Ointment 11/30/2019 12:00:00 AM EDT eCW1 ([facility]) Mupirocin 0.02 MG/MG Topical Ointment 11/30/2019 12:00:00 AM EDT eCW1 ([facility]) Mupirocin 0.02 MG/MG Topical Ointment 11/30/2019 12:00:00 AM EDT eCW1 ([facility]) chlorhexidine gluconate 40 MG/ML Medicated Liquid Soap [Hibiclens] 11/22/2019 12:00:00 AM EDT eCW1 ([facility]) Sulfamethoxazole 800 MG / Trimethoprim 160 MG Oral Tab let [Bactrim] 11/22/2019 12:00:00 AM EDT eCW1 ([facility]) chlorhexidine gluconate 40 MG/ML Medicated Liquid Soap [Hibiclens] 11/22/2019 12:00:00 AM EDT eCW1 ([facility]) Sulfamethoxazole 800 MG / Trimethoprim 160 MG Oral Tab let [Bactrim] 11/22/2019 12:00:00 AM EDT eCW1 ([facility]) chlorhexidine gluconate 40 MG/ML Medicated Liquid Soap [Hibiclens] 11/22/2019 12:00:00 AM EDT eCW1 ([facility]) Sulfamethoxazole 800 MG / Trimethoprim 160 MG Oral Tab let [Bactrim] 11/22/2019 12:00:00 AM EDT eCW1 ([facility])
[2020-07-07 14:14] LABS: ACETAMINOPHEN LEVEL < 2.0 UG/ML (10.0-30.0); ALBUMIN 3.6 GM/DL (3.2-5.2); ALT/SGPT 57 U/L (12-78); BILIRUBIN,DIRECT < 0.1 MG/DL (0.0-0.2); BILIRUBIN,TOTAL 0.1 MG/DL (0.2-1.0); BLOOD UREA NITROGEN 18 MG/DL (7-18); CALCIUM LEVEL 9.1 MG/DL (8.5-10.1); CARBON DIOXIDE LEVEL 25 MEQ/L (21-32); CHLORIDE LEVEL 108 MEQ/L (98-107); CPK CREATINE PHOSPHOKINASE 275 U/L (26-192); CREATININE FOR GFR 0.95 MG/DL (0.55-1.30); ETHYL ALCOHOL (ETHANOL) < 0.003 % (0.000-0.010); GLOMERULAR FILTRATION RATE > 60.0 (>60); GLUCOSE, FASTING 83 MG/DL (70-100); HCG, SERUM QUALITATIVE NEGATIVE (NEGATIVE); POTASSIUM SERUM 3.8 MEQ/L (3.5-5.1); SALICYLATE LEVEL < 1.7 MG/DL (5.0-30.0); SODIUM LEVEL 143 MEQ/L (136-145); TOTAL PROTEIN 7.1 GM/DL (6.4-8.2)
--- NOTE | 2020-07-07 16:08 | ECGEPIP ---
[facility] - ED Test Date: 2020-07-07 Pat Name: GIO ZAPATA Department: Room: - Gender: Female Dietary Assistant: SHANKAR : 1990 Requested By: NADEEM DOZIER Order Number: [id number] Reading MD: Nadeem Jaime Measurements Intervals [place] Rate: 75 P: 24 [place]: 122 QRS: 71 QRSD: 82 T: 47 QT: 372 QTc: 415 Interpretive Statements Normal sinus rhythm Similar to tracing done 11-23-19 Electronically Signed on 07-07-2020 16:08:19 EST by Nadeem Jaime
[2020-07-07 17:06] LABS: AMPHETAMINES LEVEL URINE NEGATIVE (NEGATIVE); BARBITURATES URINE NEGATIVE (NEGATIVE); BENZODIAZEPINES URINE NEGATIVE (NEGATIVE); CANNABINOIDS URINE NEGATIVE (NEGATIVE); COCAINE METABOLITE URINE NEGATIVE (NEGATIVE); METHADONE URINE NEGATIVE (NEGATIVE); OPIATES URINE POSITIVE (NEGATIVE); PHENCYCLIDINE URINE NEGATIVE (NEGATIVE)
[2020-07-07 17:41] VITALS: BP 105/56
== END 2020-07-07 17:47 | disposition home or self-care (01) ==
LOC: M ED 12:18
DX: T51.91XA Toxic effect of unspecified alcohol, accidental (unintentional), initial encounter (principal); Y92.9 Unspecified place or not applicable; Y93.9 Activity, unspecified; F31.9 Bipolar disorder, unspecified; F19.10 Other psychoactive substance abuse, uncomplicated; Z98.84 Bariatric surgery status
CPT/HCPCS: 36415; 80048; 80076; 80143; 80307; 82077; 82550; 84443; 84703; 85025; 93005; 93041; 94760; 96374; 99285; J2310

== ENCOUNTER → 2022-05-28 | Outpatient (CLI) | payer OTHER ==
[2022-05-31 18:07] LABS: HEPATITIS C QUANTITATION HCV Not Detected IU/mL (.)
== END ==
LOC: M LAB 13:20
DX: B18.2 Chronic viral hepatitis C (principal)

== ENCOUNTER 2022-06-23 10:16 | Emergency (ER) | payer OTHER ==
[~2022-06-23] VITALS: Ht 160 cm; Wt 65.5 kg
[2022-06-23] MEDS ORDERED: LAMO25TA4 (10:37)
[2022-06-23] MEDS ORDERED: SUBO12MI SL (10:37)
[2022-06-23] MEDS ORDERED: BUSP5TA (10:37)
[2022-06-23] MEDS ORDERED: DOXE50CA (10:37)
[2022-06-23] MEDS ORDERED: KETOROLAC 30 MG/ML 1ML VIAL IV ONE (16:55)
[2022-06-23 17:17] LABS: BASO % 0.2 % (0.0-1.0); EOS # 0.1 10^3/uL (0.0-0.5); EOS % 0.7 % (0.0-3.0); HEMATOCRIT 32.8 % (36.0-47.0); HEMOGLOBIN 10.2 g/dl (12.0-15.5); LYMPH # 1.3 10^3/uL (1.5-5.0); LYMPH % 16.4 % (24.0-44.0); MEAN CORPUSCULAR HEMOGLOBIN 24.3 pg (27.0-33.0); MEAN CORPUSCULAR HGB CONC 31.1 g/dl (32.0-36.5); MEAN CORPUSCULAR VOLUME 78.1 fl (80.0-96.0); MONO # 0.6 10^3/uL (0.0-0.8); MONO % 7.2 % (2.0-8.0); NEUTROPHILS # 6.1 10^3/uL (1.5-8.5); NEUTROPHILS % 75.3 % (36.0-66.0); PLATELET COUNT, AUTOMATED 280 10^3/uL (150-450); WHITE BLOOD COUNT 8.1 10^3/uL (4.0-10.0)
[2022-06-23 17:24] LABS: ERYTHROCYTE SEDIMENTATION RATE 32 mm/hr (0-20)
[2022-06-23 17:44] LABS: ALBUMIN 3.7 G/DL (3.2-5.2); ALKALINE PHOSPHATASE 67 U/L (46-116); ALT/SGPT 23 U/L (7.0-40); AST/SGOT 40 U/L (<34); BILIRUBIN,TOTAL 0.4 MG/DL (0.3-1.2); BLOOD UREA NITROGEN 16 MG/DL (9-23); CALCIUM LEVEL 8.8 MG/DL (8.5-10.1); CARBON DIOXIDE LEVEL 25 MMOL/L (20-31); CHLORIDE LEVEL 104 MMOL/L (98-107); CREATININE FOR GFR 0.65 MG/DL (0.55-1.30); GLOMERULAR FILTRATION RATE > 60.0 (>60); GLUCOSE, FASTING 85 MG/DL (60-100); SODIUM LEVEL 138 MMOL/L (136-145); TOTAL PROTEIN 6.5 G/DL (5.7-8.2)
[2022-06-23 18:12] VITALS: BP 122/61
[2022-06-23] MEDS ORDERED: DOXYCYCLINE HYCLATE 100MG TABLET PO ONE (18:30)
[2022-06-23] MEDS ORDERED: DOXY-443 PO (18:40)
== END 2022-06-23 18:54 | disposition home or self-care (01) ==
LOC: M ED 10:16
DX: L03.012 Cellulitis of left finger (principal); F19.10 Other psychoactive substance abuse, uncomplicated; F41.9 Anxiety disorder, unspecified; Z79.899 Other long term (current) drug therapy; Z79.810 Long term (current) use of selective estrogen receptor modulators (SERMs); Z79.83 Long term (current) use of bisphosphonates
CPT/HCPCS: 36415; 80053; 85025; 85652; 86140; 96374; 99284; J1885